=== PATIENT | female | born 1955 | race Caucasian/White ===

== ENCOUNTER → 2017-11-20 10:57 | Outpatient (CLI) | payer OTHER, SELFPAY ==
--- NOTE | 2017-11-20 11:00 | HPBI_ITS ---
MAMMOGRAPHY - BILATERAL SCREENING REASON FOR EXAM: Female, 62 years old. Routine annual screening examination. PERTINENT HISTORY: Non-contributory. Remote left excisional breast biopsy. TECHNIQUE: Digital bilateral breast maine (3D mammographic acquisition) in the CC and MLO projections. 2-D mediolateral oblique (MLO) and craniocaudad (CC) views of both breasts were obtained. CAD: Full Field Digital Mammography with Computer Added Detection was performed. COMPARISON: Comparison is made with prior outside examination dated October 27, 2014. FINDINGS: Breast Composition: The breasts are almost entirely fatty. There are no dominant masses or suspicious calcifications. No other significant abnormalities are identified. There has been no significant change since the prior study. HPBI/SCREENING MAMM (CAD), BILAT IMPRESSION: Stable bilateral screening mammogram. Yearly follow-up mammogram recommended. (A) ASSESSMENT CATEGORY: BIRADS Category 1: Negative. A letter regarding these results will be sent to the patient by the facility within 30 days. Approximately 10% of breast cancers are not detected by mammography. A normal mammogram should not delay biopsy of a clinically suspicious abnormality. [id number] Electronically Signed: Anatoliy Dumont MD at 14:44 EST Tel [phone], Service support ,
== END ==
PROVIDERS: Family Provider Family Medicine; PCP Family Medicine; Visit Provider Family Medicine
DX: Z12.31 Encounter for screening mammogram for malignant neoplasm of breast (principal)
CPT/HCPCS: 77063; 77067

== ENCOUNTER → 2018-02-24 09:31 | Outpatient (CLI) | payer OTHER, SELFPAY ==
[2018-02-24 12:19] LABS: Absolute Lymphocyte Count 1.76 X10^3/ul (0.83-4.51); Absolute Neutrophil Count 2.2 X10^3/uL (2.0-7.7); Basophil# 0.03 X10^3/uL; Basophil% 0.7 % (0-1); Eosinophil# 0.12 X10^3/uL; Eosinophils% 2.7 % (0-5); Hematocrit 37.2 % (37-47); Hemoglobin 12.5 g/dl (12.0-15.0); Lymphocyte # 1.76 X10^3/ul (4.0); Lymphocyte % 39.1 % (19-41); Mean Corp Hgb Conc 33.6 g/gl (32-36); Mean Corpuscular Volume 83.4 fL (81-99); Mean Platelet Vol. 9.6 fl (6.2-12.0); Monocyte# 0.37 X10^3/uL; Monocyte% 8.2 % (0-10); Neutrophil # 2.21 X10^3/uL (2.7-7.7); Neutrophil % 49.1 % (47-70); Platelet Count 230 K/mm3 (150-450); RBC Distribution Width CV 13.6 % (11.6-14.6); RBC Distribution Width SD 40.9 fl (35.1-43.9); Red Blood Count 4.46 M/mm3 (4.2-5.4); White Blood Count 4.5 K/mm3 (4.4-11.0)
[2018-02-24 12:27] LABS: POSITIVE COUNT NO; POSITIVE DIFFERENTIAL NO; POSITIVE MORPHOLOGY NO
[2018-02-24 12:34] LABS: Vitamin D,25 Hydroxy 30.1 ng/mL (29.95-100.01)
[2018-02-24 12:40] LABS: ALB/GLOB Ratio 0.9 RATIO (0.9-2.4); AST(SGOT) 20 U/L (15-37); Alanine Aminotransfer ALT/SGPT 31 U/L (13-56); Albumin, Serum 3.6 g/dL (3.2-5.0); Alkaline Phosphatase 48 U/L (45-117); Anion Gap 6 (5-15); BUN 15 mg/dL (7-18); BUN/Creat Ratio 18.8 RATIO (10-20); Chloride 105 mmol/L (98-107); EST Glomerular Filtration Rate 78 mL/min (>60); Est Glom Filt Rate - Afr Amer 94 mL/min (>60); Free T3 2.3 pg/mL (2.18-3.98); Glucose 85 mg/dL (74-106); Protein, Total 7.6 g/dL (6.4-8.2); Sodium Level 141 mmol/L (136-145); T4 Free Direct 1.07 ng/dL (0.76-1.46); Thyroid Stim Hormone (TSH) 0.94 uIU/mL (0.358-3.74)
== END ==
PROVIDERS: Family Provider Family Medicine; PCP Family Medicine; Visit Provider Family Medicine
DX: E03.9 Hypothyroidism, unspecified (principal); E55.9 Vitamin D deficiency, unspecified; I10 Essential (primary) hypertension
CPT/HCPCS: 36415; 80053; 82306; 84439; 84443; 84481; 85025

== ENCOUNTER → 2018-11-25 13:26 | Outpatient (CLI) | payer OTHER, SELFPAY ==
[2018-11-25 15:53] LABS: Absolute Lymphocyte Count 1.87 X10^3/ul (0.83-4.51); Absolute Neutrophil Count 2.8 X10^3/uL (2.0-7.7); Basophil# 0.03 X10^3/uL; Basophil% 0.6 % (0-1); Eosinophils% 1.9 % (0-5); Hematocrit 39.7 % (37-47); Hemoglobin 13.1 g/dl (12.0-15.0); Lymphocyte # 1.87 X10^3/ul (4.0); Lymphocyte % 35.5 % (19-41); Mean Corpuscular Hgb 27.6 pg (27.0-32.0); Mean Corpuscular Volume 83.8 fL (81-99); Mean Platelet Vol. 9.8 fl (6.2-12.0); Monocyte# 0.45 X10^3/uL; Monocyte% 8.5 % (0-10); Neutrophil # 2.81 X10^3/uL (2.7-7.7); Neutrophil % 53.3 % (47-70); Platelet Count 253 K/mm3 (150-450); RBC Distribution Width CV 13.3 % (11.6-14.6); Red Blood Count 4.74 M/mm3 (4.2-5.4); White Blood Count 5.3 K/mm3 (4.4-11.0)
[2018-11-25 16:13] LABS: POSITIVE COUNT NO; POSITIVE DIFFERENTIAL NO; POSITIVE MORPHOLOGY NO
[2018-11-25 16:29] LABS: ALB/GLOB Ratio 0.9 RATIO (0.9-2.4); AST(SGOT) 17 U/L (15-37); Alanine Aminotransfer ALT/SGPT 32 U/L (13-56); Albumin, Serum 3.6 g/dL (3.2-5.0); Alkaline Phosphatase 54 U/L (45-117); Anion Gap 4 (5-15); BUN 10 mg/dL (7-18); BUN/Creat Ratio 10.5 RATIO (10-20); Calcium,Total 8.1 mg/dL (8.5-10.1); Chloride 104 mmol/L (98-107); Creatinine, Serum 0.96 mg/dL (0.55-1.02); EST Glomerular Filtration Rate 63 mL/min (>60); Est Glom Filt Rate - Afr Amer 76 mL/min (>60); Globulin 4.1 g/dL (2.2-4.2); Glucose 93 mg/dL (74-106); Potassium 3.4 mmol/L (3.5-5.1); Protein, Total 7.7 g/dL (6.4-8.2); Sodium Level 140 mmol/L (136-145); T4 Free Direct 1.01 ng/dL (0.76-1.46)
== END ==
PROVIDERS: Family Provider Family Medicine; PCP Family Medicine; Visit Provider Family Medicine
DX: E03.9 Hypothyroidism, unspecified (principal); R00.2 Palpitations; I10 Essential (primary) hypertension; E55.9 Vitamin D deficiency, unspecified
CPT/HCPCS: 36415; 80053; 82306; 83735; 84439; 84443; 85025

== ENCOUNTER → 2019-03-12 | Outpatient (CLI) | payer OTHER, SELFPAY ==
--- NOTE | 2019-03-12 14:18 | BI_ITS ---
MAMMOGRAPHY - BILATERAL SCREENING REASON FOR EXAM: Female, 63 years old. Routine annual screening examination. PERTINENT HISTORY: Non-contributory. Remote left excisional breast biopsy. TECHNIQUE: Digital bilateral breast maine (3D mammographic acquisition) in the CC and MLO projections. 2-D mediolateral oblique (MLO) and craniocaudad (CC) views of both breasts were obtained. CAD: Full Field Digital Mammography with Computer Added Detection was performed. COMPARISON: Comparison is made with prior study dated November 20, 2017 and August 16, 2016. FINDINGS: Breast Composition: The breasts are almost entirely fatty. There are no dominant masses or suspicious calcifications. No other significant abnormalities are identified. There has been no significant change since the prior study. BI/SCREENING MAMM (CAD), BILAT IMPRESSION: Stable bilateral screening mammogram. Yearly follow-up mammogram recommended. (A) ASSESSMENT CATEGORY: BIRADS Category 1: Negative. A letter regarding these results will be sent to the patient by the facility within 30 days. Approximately 10% of breast cancers are not detected by mammography. A normal mammogram should not delay biopsy of a clinically suspicious abnormality. [id number] Electronically Signed: Anatoliy Dumont, at 15:41 EDT , Service support ,
== END | disposition home or self-care (01) ==
LOC: OPBI 14:13
PROVIDERS: Family Provider Family Medicine; PCP Family Medicine; Referring Provider Family Medicine; Visit Provider Family Medicine
DX: Z12.31 Encounter for screening mammogram for malignant neoplasm of breast (principal)
CPT/HCPCS: 77063; 77067

== ENCOUNTER → 2019-04-16 | Outpatient (CLI) | payer OTHER, SELFPAY ==
[2019-03-26 13:11] VITALS: BMI 56.6
--- NOTE | 2019-04-16 10:00 | STRESSREP ---
Stress Test Report Date: 04/16/2019 Procedure: Pharmacologic stress nuclear imaging study Indications: Chest pain Consent: Per the patient Procedure: The patient underwent pharmacologic (Regadenoson) evaluation with a peak heart rate of 80 beats per minute (50 %predicted maximal heart rate) and a peak blood pressure of 180/84 mmHg. The baseline ECG demonstrated normal sinus rhythm, possible prior septal infarction. EKG during lexiscan infusion revealed no significant change from baseline. EKG post infusion revealed no significant change from baseline [There were no cardiac dysrhythmias pretest, during pharmacologic infusion, or recovery]. [There was no complaint of chest discomfort during pharmacologic infusion or recovery]. The examination was discontinued secondary to completion of protocol. Impression: 1. Lexiscan stress test test is negative for Lexiscan infusion induced EKG changes of ischemia. 2. Lexiscan stress test test is negative for Lexiscan infusion induced chest pain. 3. Results of the nuclear portion of the test is as below Myocardial perfusion imaging study: Technique: The patient was injected with 14.5 millicuries of technetium 99m Cardiolite and subsequently rest SPECT Cardiolite nuclear imaging was obtained in the horizontal long, vertical long, and short axis views. The patient underwent pharmacologic (Regadenoson) evaluation. Please see above for details. The patient was injected with [] millicuries of technetium 99m Cardiolite and subsequently stress SPECT Cardiolite nuclear imaging was obtained in the horizontal long, vertical long, and short axis views. A gated Cardiolite study at peak stress was obtained. Interpretation: Rest and stress SPECT Cardiolite nuclear imaging status post realignment, normalization, and attenuation correction demonstrate mild decrease in radioisotope uptake in the apex on rest and stress images. Gated images reveal significant regional wall motion abnormalities. The reported LVEF is greater than 70 %. These findings are suggestive of apical thinning, a normal variant. There is no evidence of significant ischemia or infarction Impression: 1. There is no evidence of significant ischemia or infarction. 2. Estimated ejection fraction is greater than 70%. This note was generated with [employer] software. It may contain incorrect words, spelling, and punctuation that were not noted in checking the note before signing.
== END | disposition home or self-care (01) ==
LOC: CVS 06:57
PROVIDERS: Family Provider Family Medicine; PCP Family Medicine; Referring Provider Internal Medicine Cardiovascular Disease; Visit Provider Internal Medicine Cardiovascular Disease
DX: R07.9 Chest pain, unspecified (principal)
CPT/HCPCS: 78452; 93017; A9500; A4216; J2785

== ENCOUNTER → 2019-04-22 | Outpatient (CLI) | payer OTHER, SELFPAY ==
--- NOTE | 2019-04-22 | LES_PTH ---
PATIENT: YEIMY NAVAS LOC: [facility] U#:[id number] AGE/SX: 63/F ROOM: RE04/22/[address]: SAMANTHA: [id number] BED: DIS: 04/22/2019 SPEC #: [id number] RECD: 04/22/19 11:57 STATUS: PAKO VIKTOR #: [id number] FABIENNE: 04/22/19 00:[address]: Tushar Peralta DEPT: SURGICAL PATHOLOGY RECD BY: Rah Masters ENTERED: 04/22/19 14:08 SP TYPE: Lesion OTHR DR: MD Dr. Bienvenido Álvarez MD Tissues: A - Skin of upper extremity and shoulder B - Skin of upper extremity and shoulder C - Skin of neck, NOS Procedures: Surgery Specimen Level IV Comments: @ Ordering doctor for SUIV edited from Mary Mercer to @ by JOSE ANTONIO at 04/22/19 1535 @ Submitting doctor edited from Mary Mercer to @ by JOSE ANTONIO at 04/22/19 1535 HEADER OPERATION: Excision bilateral shoulder lesions PRE-OP DIAGNOSIS: Neoplasm TISSUE SUBMITTED: A - Right shoulder lesion, B - Left shoulder lesion, C - Left base of neck lesion MICROSCOPIC DIAGNOSIS A. Right shoulder lesion, biopsy: Benign vascular proliferation, capillary hemangioma. B. Left shoulder lesion, biopsy: Benign vascular proliferation, capillary hemangioma. C. Left base of neck lesion, biopsy: Benign vascular proliferation, capillary hemangioma. JENNI:maddi 04/24/19 MICROSCOPIC DESCRIPTION Slides are reviewed. GROSS DESCRIPTION A - Received in fixative is one container labeled with the patient's name and designated right shoulder. The specimen consists of a polypoid piece of bates-brown skin measuring 1 x 1 x 1 cm. The specimen is inked, bisected and submitted entirely in one cassette. B - Received in fixative is one container labeled with the patient's name and designated left shoulder. The specimen consists of a polypoid piece of bates-brown skin measuring 1 x 0.7 x 0.8 cm. The specimen is inked, bisected and submitted entirely in one cassette. C - Received in fixative is one container labeled with the patient's name and designated left base of neck. The specimen consists of a polypoid piece of bates-pink skin measuring 0.5 x 0.5 x 0.3 cm. The specimen is inked and submitted entirely in one cassette. / SJ:maddi 04/22/19 TC:1 CPT: 48358 x3
[2019-04-22 08:43] VITALS: BMI 56.6
[2019-04-22 12:42] LABS: Cholesterol 180 mg/dL (200); High Density Lipoprotein 49 mg/dL; Triglycerides 134 mg/dL; Very Low Density Lipoprotein 27 mg/dL (5-40)
== END | disposition home or self-care (01) ==
PROVIDERS: Internal Medicine Cardiovascular Disease; Family Provider Family Medicine; PCP Family Medicine; Referring Provider Surgery
DX: I25.10 Atherosclerotic heart disease of native coronary artery without angina pectoris (principal); D18.01 Hemangioma of skin and subcutaneous tissue
CPT/HCPCS: 36415; 80061; 88305

== ENCOUNTER → 2019-09-01 10:10 | Outpatient (CLI) | payer OTHER, SELFPAY ==
[2019-04-22 08:43] VITALS: BMI 56.6
--- NOTE | 2019-09-01 10:28 | RAD_ITS ---
STUDY: X-RAY CHEST REASON FOR EXAM: Female, 63 years old. Persistent cough TECHNIQUE: Frontal and lateral views of the chest. COMPARISON: None. FINDINGS: The lungs are clear and expanded. There is no demonstrated pleural abnormality. Normal size heart. Normal mediastinum and elvira. Normal visualized pulmonary arteries. Normal visualized aortic arch and descending thoracic aorta. There are diffuse degenerative changes of the visualized thoracic spine. There is degenerative osteoarthritis of the bilateral shoulders. There is no demonstrated abnormality of the visualized soft tissue structures of the upper abdomen. RAD/Chest PA and Lateral IMPRESSION: Degenerative changes, as described above. No demonstrated acute cardiopulmonary process. Electronically Signed: Gabi Forde, at 0:24 EST Tel , Service support ,
[2019-09-01 12:23] LABS: Absolute Lymphocyte Count 1.53 X10^3/uL (0.83-4.51); Absolute Neutrophil Count 2.9 X10^3/uL (2.0-7.7); Basophil# 0.02 X10^3/uL; Basophil% 0.4 % (0-1); Eosinophil# 0.12 X10^3/uL; Eosinophils% 2.5 % (0-5); Hematocrit 36.9 % (37-47); Lymphocyte # 1.53 X10^3/ul (4.0); Lymphocyte % 31.7 % (19-41); Mean Corp Hgb Conc 32.5 g/dL (32-36); Mean Corpuscular Hgb 27.6 pg (27.0-32.0); Mean Platelet Vol. 9.5 fl (6.2-12.0); Monocyte# 0.28 X10^3/uL; Monocyte% 5.8 % (0-10); NRBC Flagged by Analyzer 0 % (0-5); Neutrophil # 2.85 X10^3/uL (2.7-7.7); Neutrophil % 59.2 % (47-70); Platelet Count 236 K/mm3 (150-450); RBC Distribution Width CV 13.4 % (11.6-14.6); RBC Distribution Width SD 41.7 fl (35.1-43.9); Red Blood Count 4.34 M/mm3 (4.2-5.4); White Blood Count 4.8 K/mm3 (4.4-11.0)
[2019-09-01 13:00] LABS: Vitamin D,25 Hydroxy 39.8 ng/mL (29.95-100.01)
[2019-09-01 13:22] LABS: AST(SGOT) 17 U/L (15-37); Alanine Aminotransfer ALT/SGPT 27 U/L (13-56); Albumin, Serum 3.6 g/dL (3.2-5.0); Alkaline Phosphatase 59 U/L (45-117); Anion Gap 7 (5-15); BUN 13 mg/dL (7-18); BUN/Creat Ratio 13.1 RATIO (10-20); Calcium,Total 8.3 mg/dL (8.5-10.1); Chloride 105 mmol/L (98-107); Creatinine, Serum 0.99 mg/dL (0.55-1.02); EST Glomerular Filtration Rate 60 mL/min (>60); Est Glom Filt Rate - Afr Amer 73 mL/min (>60); Globulin 3.6 g/dL (2.2-4.2); Glucose 88 mg/dL (74-106); Potassium 3.6 mmol/L (3.5-5.1); Protein, Total 7.2 g/dL (6.4-8.2); Sodium Level 142 mmol/L (136-145); Thyroid Stim Hormone (TSH) 1.12 uIU/mL (0.358-3.74)
== END ==
PROVIDERS: Family Provider Family Medicine; PCP Family Medicine; Referring Provider Family Medicine; Visit Provider Family Medicine
DX: R05 Cough (principal); R73.02 Impaired glucose tolerance (oral); I10 Essential (primary) hypertension; E03.9 Hypothyroidism, unspecified; E55.9 Vitamin D deficiency, unspecified
CPT/HCPCS: 36415; 71046; 80053; 82306; 84443; 85025

== ENCOUNTER → 2020-03-24 08:35 | Outpatient (CLI) | payer OTHER, SELFPAY ==
[2019-04-22 08:43] VITALS: BMI 56.6
[2020-03-24 12:42] LABS: Absolute Lymphocyte Count 1.46 X10^3/uL (0.83-4.51); Absolute Neutrophil Count 2.5 X10^3/uL (2.0-7.7); Basophil# 0.03 X10^3/uL; Basophil% 0.7 % (0-1); Eosinophil# 0.06 X10^3/uL; Eosinophils% 1.4 % (0-5); Hematocrit 38.8 % (37-47); Hemoglobin 12.5 g/dL (12.0-15.0); Lymphocyte # 1.46 X10^3/ul (4.0); Lymphocyte % 33.7 % (19-41); Mean Corp Hgb Conc 32.2 g/dL (32-36); Mean Corpuscular Hgb 27.4 pg (27.0-32.0); Mean Corpuscular Volume 85.1 fL (81-99); Monocyte# 0.32 X10^3/uL; Monocyte% 7.4 % (0-10); NRBC Flagged by Analyzer 0 % (0-5); Neutrophil # 2.45 X10^3/uL (2.7-7.7); Neutrophil % 56.6 % (47-70); Platelet Count 224 K/mm3 (150-450); RBC Distribution Width CV 13.6 % (11.6-14.6); RBC Distribution Width SD 41.4 fl (35.1-43.9); Red Blood Count 4.56 M/mm3 (4.2-5.4); White Blood Count 4.3 K/mm3 (4.4-11.0)
[2020-03-24 12:51] LABS: Vitamin D,25 Hydroxy 54.6 ng/mL
[2020-03-24 12:57] LABS: Hemoglobin A1c 5.3 % (3.8-5.6)
[2020-03-24 12:58] LABS: ALB/GLOB Ratio 0.9 RATIO (0.9-2.4); AST(SGOT) 20 U/L (15-37); Alanine Aminotransfer ALT/SGPT 39 U/L (13-56); Albumin, Serum 3.6 g/dL (3.2-5.0); Alkaline Phosphatase 50 U/L (45-117); Anion Gap 7 (5-15); BUN 17 mg/dL (7-18); BUN/Creat Ratio 19.7 RATIO (10-20); Calcium,Total 8.7 mg/dL (8.5-10.1); Chloride 103 mmol/L (98-107); Cholesterol 148 mg/dL (200); Creatinine, Serum 0.86 mg/dL (0.55-1.02); EST Glomerular Filtration Rate 70 mL/min (>60); Est Glom Filt Rate - Afr Amer 85 mL/min (>60); Globulin 4.1 g/dL (2.2-4.2); Glucose 84 mg/dL (74-106); High Density Lipoprotein 40 mg/dL; Potassium 3.6 mmol/L (3.5-5.1); Protein, Total 7.7 g/dL (6.4-8.2); Sodium Level 139 mmol/L (136-145); Thyroid Stim Hormone (TSH) 0.26 uIU/mL (0.358-3.74); Triglycerides 115 mg/dL; Very Low Density Lipoprotein 23 mg/dL (5-40)
== END ==
PROVIDERS: PCP Family Medicine; Visit Provider Family Medicine
DX: R73.02 Impaired glucose tolerance (oral) (principal); I10 Essential (primary) hypertension; E03.9 Hypothyroidism, unspecified; E55.9 Vitamin D deficiency, unspecified; E78.00 Pure hypercholesterolemia, unspecified
CPT/HCPCS: 36415; 80053; 80061; 82306; 83036; 84443; 85025

== ENCOUNTER → 2020-10-04 16:40 | Outpatient (CLI) | payer OTHER, SELFPAY ==
[2019-04-22 08:43] VITALS: BMI 56.6
--- NOTE | 2020-10-04 16:31 | BI_ITS ---
MAMMOGRAPHY - BILATERAL SCREENING REASON FOR EXAM: Female, 64 years old. Routine annual screening examination. PERTINENT HISTORY: Daughter with breast cancer. TECHNIQUE: Digital bilateral breast madelyn (3D mammographic acquisition) in the CC and MLO projections. 2-D mediolateral oblique (MLO) and craniocaudad (CC) views of both breasts were obtained. CAD: Full Field Digital Mammography with Computer Added Detection was performed. COMPARISON: Comparison is made with prior study dated 03/12/2019 and 11/20/2017. FINDINGS: Breast Composition: The breasts are almost entirely fatty. There are no dominant masses or suspicious calcifications. No other significant abnormalities are identified. There has been no significant change since the prior study. BI/SCREEN MAMM (CAD) W/MADELYN BILAT IMPRESSION: Stable bilateral screening mammogram. Yearly follow-up mammogram recommended. (A) ASSESSMENT CATEGORY: BIRADS Category 1: Negative. A letter regarding these results will be sent to the patient by the facility within 30 days. Approximately 10% of breast cancers are not detected by mammography. A normal mammogram should not delay biopsy of a clinically suspicious abnormality. [id number] Electronically Signed: Anatoliy Dumont, at 8:10 EST , Service support ,
== END ==
PROVIDERS: PCP Family Medicine; Referring Provider Family Medicine; Visit Provider Family Medicine
DX: Z12.31 Encounter for screening mammogram for malignant neoplasm of breast (principal)
CPT/HCPCS: 77063; 77067

== ENCOUNTER → 2020-10-05 09:49 | Outpatient (CLI) | payer OTHER, SELFPAY ==
[2019-04-22 08:43] VITALS: BMI 56.6
[2020-10-05 12:45] LABS: Absolute Neutrophil Count 3.3 X10^3/uL (2.0-7.7); Basophil# 0.05 X10^3/uL; Basophil% 0.9 % (0-1); Eosinophils% 1.8 % (0-5); Hematocrit 39.8 % (37-47); Hemoglobin 13.1 g/dL (12.0-15.0); Lymphocyte % 31.1 % (19-41); Mean Corp Hgb Conc 32.9 g/dL (32-36); Mean Corpuscular Hgb 27.7 pg (27.0-32.0); Mean Corpuscular Volume 84.1 fL (81-99); Mean Platelet Vol. 9.7 fl (6.2-12.0); Monocyte# 0.33 X10^3/uL; NRBC Flagged by Analyzer 0 % (0-5); Neutrophil # 3.27 X10^3/uL (2.7-7.7); Platelet Count 253 K/mm3 (150-450); RBC Distribution Width CV 12.7 % (11.6-14.6); RBC Distribution Width SD 38.5 fl (35.1-43.9); Red Blood Count 4.73 M/mm3 (4.2-5.4); White Blood Count 5.5 K/mm3 (4.4-11.0)
[2020-10-05 13:16] LABS: AST(SGOT) 9 U/L (15-37); Alanine Aminotransfer ALT/SGPT 20 U/L (13-56); Albumin, Serum 3.7 g/dL (3.2-5.0); Alkaline Phosphatase 57 U/L (45-117); Anion Gap 3 (5-15); BUN 18 mg/dL (7-18); BUN/Creat Ratio 16.5 RATIO (10-20); Calcium,Total 8.5 mg/dL (8.5-10.1); Chloride 105 mmol/L (98-107); Cholesterol 196 mg/dL (200); Creatinine, Serum 1.09 mg/dL (0.55-1.02); EST Glomerular Filtration Rate 54 mL/min (>60); Est Glom Filt Rate - Afr Amer 65 mL/min (>60); Globulin 3.8 g/dL (2.2-4.2); Glucose 84 mg/dL (74-106); High Density Lipoprotein 52 mg/dL; Potassium 4.1 mmol/L (3.5-5.1); Protein, Total 7.5 g/dL (6.4-8.2); Sodium Level 140 mmol/L (136-145); Thyroid Stim Hormone (TSH) 2.65 uIU/mL (0.358-3.74); Triglycerides 95 mg/dL; Very Low Density Lipoprotein 19 mg/dL (5-40)
== END ==
LOC: BFHLAB 09:50
PROVIDERS: PCP Family Medicine; Visit Provider Family Medicine
DX: I10 Essential (primary) hypertension (principal); E03.9 Hypothyroidism, unspecified; E55.9 Vitamin D deficiency, unspecified; R60.9 Edema, unspecified
CPT/HCPCS: 36415; 80053; 80061; 82306; 84439; 84443; 85025

== ENCOUNTER 2020-12-29 15:28 | Outpatient (RCR) | payer OTHER, SELFPAY ==
[2019-04-22 08:43] VITALS: BMI 56.6
[2020-12-29] MEDS: COVID-19 VACC, MRNA(PFIZER)/PF 30 MCG/0.3 ML SYRINGE IM (17:19)
[2021-01-19] MEDS: COVID-19 VACC, MRNA(PFIZER)/PF 30 MCG/0.3 ML SYRINGE IM (17:05)
== END 2021-03-28 23:59 ==
LOC: IMMUN 15:28
PROVIDERS: PCP Family Medicine; Visit Provider Family Medicine
DX: Z23 Encounter for immunization (principal)
CPT/HCPCS: 0001A; 0002A; 91300

== ENCOUNTER → 2021-07-15 | Outpatient (CLI) | payer OTHER, SELFPAY | END | disposition home or self-care (01) | LOC: LABSPEC 10:07 | PROVIDERS: PCP Family Medicine; Referring Provider Family Medicine; Visit Provider Family Medicine | DX: U07.1 COVID-19 (principal) | CPT/HCPCS: 87635; U0005; U0003 ==

== ENCOUNTER → 2021-08-23 10:01 | Outpatient (CLI) | payer OTHER, SELFPAY ==
[2019-04-22 08:43] VITALS: BMI 56.6
--- NOTE | 2021-08-23 10:03 | RAD_ITS ---
STUDY: X-RAY CHEST REASON FOR EXAM: Female, 65 years old. CHEST PAIN TECHNIQUE: PA and lateral COMPARISON: 09/01/2019. FINDINGS: The lungs are clear and expanded. There is no demonstrated pleural abnormality. Heart is mildly enlarged. Normal mediastinum and elvira. Normal visualized pulmonary arteries. Normal visualized aortic arch and descending thoracic aorta. Dorsal spine demonstrates degenerative change. Normal visualized ribs, clavicles, and shoulders. There is no demonstrated abnormality of the visualized soft tissue structures of the upper abdomen. No significant change since prior exam. RAD/Chest PA and Lateral IMPRESSION: No acute cardiopulmonary pathology Electronically Signed: Francisco Nuñez MD at 16:49 EDT , Service support ,
== END ==
PROVIDERS: PCP Family Medicine; Referring Provider Family Medicine; Visit Provider Family Medicine
DX: R07.89 Other chest pain (principal)
CPT/HCPCS: 71046

== ENCOUNTER → 2021-10-10 12:54 | Outpatient (CLI) | payer OTHER, SELFPAY ==
--- NOTE | 2021-10-10 12:57 | BI_ITS ---
MAMMOGRAPHY - BILATERAL SCREENING REASON FOR EXAM: Female, 65 years old. Routine annual screening examination. PERTINENT HISTORY: Daughter with breast cancer. Remote left excisional breast biopsy. TECHNIQUE: Digital bilateral breast madelyn (3D mammographic acquisition) in the CC and MLO projections. 2-D mediolateral oblique (MLO) and craniocaudad (CC) views of both breasts were obtained. CAD: Full Field Digital Mammography with Computer Added Detection was performed. COMPARISON: Comparison is made with prior study dated 10/04/2020 and 03/12/2019. FINDINGS: Breast Composition: The breasts are almost entirely fatty. There are no dominant masses or suspicious calcifications. Stable small benign-appearing bilateral axillary. No other significant abnormalities are identified. There has been no significant change since the prior study. BI/SCRN MAMM (CAD)W/MADELYN BILAT IMPRESSION: Stable bilateral screening mammogram. Yearly follow-up mammogram recommended. (A) ASSESSMENT CATEGORY: BIRADS Category 2: Benign. A letter regarding these results will be sent to the patient by the facility within 30 days. Approximately 10% of breast cancers are not detected by mammography. A normal mammogram should not delay biopsy of a clinically suspicious abnormality. [id number] Electronically Signed: Anatoliy Dumont MD at 14:27 EST , Service support ,
== END ==
PROVIDERS: PCP Family Medicine; Referring Provider Family Medicine; Visit Provider Family Medicine
DX: Z12.31 Encounter for screening mammogram for malignant neoplasm of breast (principal)
CPT/HCPCS: 77063; 77067

== ENCOUNTER 2021-11-08 17:44 | Emergency (ER) | payer MEDICARE, OTHER, SELFPAY ==
[2021-11-08 17:45] VITALS: BP 151/112; PULSE 66; RESP 16; TEMP 36.3; O2SAT 99; BMI 56.5
[2021-11-08 17:51] LABS: Bedside Glucose 110 mg/dL (70-110)
--- NOTE | 2021-11-08 17:51 | ED.RN ---
DR. CONNELL AND CHARGE NURSE ROSA INFORMED OF PT SX ON ARRIVAL. PER DR. CONNELL, NO STROKE TEAM. PT MAY BE HAVING A REACTION TO NOVOCAINE INJECTIONS. PT REPORTS IMPROVING SX, BUT SX HAVE NOT RESOLVED. DR. CONNELL AWARE.
[2021-11-08 19:11] VITALS: BP 181/68
--- NOTE | 2021-11-08 19:43 | EDS_ITS ---
HPI History of Present Illness Chief Complaint: Numb/Ting Detail of Chief Complaint: Left facial numbness and tingling after having local anesthetic for dental Informant: patient Onset/Context/Timing Onset: Today and Hours Context: Gradual Onset Timing: Continuous Quality and Location: Positive for Left Facial Droop and Right Face Paresthesia; Negative for Right Arm Parasthesia, Left Arm Parasthesia, Right Leg Parasthesia, Left Leg Parasthesia, Right Arm Weakness, Left Arm Weakness, Right Leg Weakness, Left Leg Weakness and Difficulty with Ambulation Current Severity: Gone Maximum Severity: Mild Narrative Narrative: 65-year-old female had dental work done today with local anesthetic to her left lower jaw. She had a filling placed in the left lower molar. She said after the procedure she has some facial tingling and may be a left facial droop. It is now completely resolved. She had no trouble using her arms or legs. No new numbness or weakness. No visual change. She has never had any history of a TIA or stroke. Prior similar symptoms: No Recent Illness/Hospitalization: No [facility] Medical History (Updated 11/08/21 @ 19:[address] Sandip Mcgee MD) Agatston CAC score, >400 Asthmatic bronchitis Chest discomfort Depression Edema Family history of ischemic heart disease GERD (gastroesophageal reflux disease) History of colon polyps History of pulmonary embolus (PE) (12/01/16) HTN (hypertension) Hyperlipidemia Hypothyroidism Morbid obesity Palpitations Pulmonary embolus (~2017) Skin lesion Sleep apnea Home Medications aspirin 81 mg PO DAILY 12/01/16 [History Last Taken 11/30/16] citalopram 20 mg PO DAILY 12/01/16 [History Last Taken 11/30/16] furosemide 20 mg PO DAILY 12/01/16 [History Last Taken 11/30/16] levothyroxine 175 mcg PO DAILY 12/01/16 [History Last Taken 12/01/16] losartan-hydrochlorothiazide 1 ea PO DAILY 12/01/16 [History Last Taken 11/30/16] cholecalciferol (vitamin D3) 1,250 mcg (50,000 unit) capsule 50,000 unit PO QWEEK cap 04/15/19 [History Last Taken Unknown] Allergy/AdvReac Type Severity Reaction Status Date / Time erythromycin base Allergy Mild rash Verified 11/08/21 17:45 sertraline [From Zoloft] AdvReac Mild mental Verified 11/08/21 17:45 status change atorvastatin [From Lipitor] AdvReac Other Verified 11/08/21 19:13 lisinopril AdvReac Other Verified 11/08/21 19:13 Family History Father Myocardial infarction CAD (coronary artery disease) Mother Cancer ovarian Hypertension Hyperlipidemia Surgical History History of cholecystectomy History of colonoscopy (~2013) history of completion thyroidectomy History of hysterectomy History of partial thyroidectomy Social History (Updated 04/22/19 @ 16:[address] Tushar Peralta MD) Smoking Status: Never smoker ROS ROS ED ROS Narrative No recent illness. Review of Systems ROS Unobtainable: Denies due to encephalopathy Constitutional Constitutional ED: Denies chills, fever(s) or subjective Eyes Eyes: Denies change in vision ENT ENT ED: Denies ear pain or rhinorrhea Cardiovascular Cardiovascular: Denies chest pain Respiratory/Chest Respiratory/Chest: Denies cough, dyspnea or sputum Gastrointestinal Gastrointestinal: Denies abdominal pain, diarrhea, nausea or vomiting Genitourinary Genitourinary ED: Denies dysuria Musculoskeletal Musculoskeletal: Denies myalgias Integumentary Denies rash Neurologic Neurologic: Denies headache(s) Psychiatric Psychiatric: Denies depression Endocrine Endocrinology: Denies polyuria Hematologic/Lymphatic Hematologic/Lymphatic: Denies easy bruising Allergic/Immunologic Allergic/Immunologic ED: Denies urticaria EXAM Physical Exam Narrative Exam Narrative: 65-year-old female normal exam. Normal neurologic exam. Initially blood pressure was 151/112 is now 181/68. Pulse ox 99% on room air no hypoxia. She is afebrile. HEENT exam normal. Currently no facial droop. Able to open and close her eyes only difficult. Able to wrinkle her forehead. Normal speech. Neck nontender. Lungs are clear. Heart regular rhythm no murmur. Abdomen soft nontender moving all 4 extremities. 5-5 balance weigher strength. Dorsi plantarflexion intact. Fingertip to nose within normal limits. No drift. Back nontender. Neurologic exam normal. Awake. Alert. Normal speech. No facial droop. Extraocular motions intact. Tongue midline. Arms and legs motor and sensory normal. NIH of 0. Const Vital Signs: 11/08/21 17:45 11/08/21 19:11 Temperature 97.3 F L Temperature Source Temporal Pulse Rate 66 Respiratory Rate 16 Blood Pressure 151/112 H 181/68 H Blood Pressure Mean 125 105 Pulse Ox 99 Oxygen Delivery Method Room Air Positive well nourished, well developed and obese; Negative for cachectic, contractures or unkempt General Appearance ED: well developed and NAD; Negative for unkempt, cachectic or contractures Nutritional Appearance: obese; Negative for cachectic HEENT Reports moist mucous membranes atraumatic; Negative for trauma Eyes PERRL and EOMs intact bilaterally General Eye ED: Negative for pale conjunctiva or scleral icterus Neck supple and no JVD General: Negative for tenderness Chest Wall inspection of chest normal and palpation of chest normal Resp normal respiratory effort and clear to auscultation bilaterally Auscultation: Negative for rales, rhonchi or wheezes Cardio no murmurs Rate: regular rate Rhythm: regular rhythm Heart Sounds: S1 normal and S2 normal GI normal to inspection, nondistended, normoactive bowel sounds, soft to palpation, non-tender, non-distended and no masses Inspection: Negative for abdominal distention Auscultation: normoactive bowel sounds Palpation: Negative for tender, guarding or rebound tenderness present Back/Spine no CVA tenderness General Back: Negative for CVA tenderness Cervical Spine: Negative for cervical spine tenderness Thoracic Spine / Upper Back: Negative for thoracic spinal tenderness Lumbar Spine / Lower Back: Negative for lumbar spinal tenderness Extremity normal to inspection General Extremety ED: Negative for deformity, edema or tenderness General Extremity: Negative for deformity or edema Neuro oriented x3, CN's II-XII intact bilaterally and no sensory deficits noted Neuro Narrative: NIH score 0. Sensorium / Orientation: alert, oriented to person, oriented to place and oriented to time; Negative for orientation impaired, confused, lethargic or stuporous Speech: speech normal Motor Exam: strength 5/5 throughout; Negative for general weakness or strength abnormal Psych mental status grossly normal Appearance: Negative for unkempt Attitude: No agitated Mood & Affect: Negative for depressed, anxious or tearful Skin no wounds General Skin Exam: Negative for jaundice Lesions: no lesions Rashes: no rashes and No rashes noted Trauma: Negative for abrasion, laceration or puncture STROKE Vital Signs/Narrative: Vital Signs Temp Pulse Resp BP Pulse Ox 11/08/21 19:11 181/68 H 11/08/21 17:45 97.3 F L 66 16 151/112 H 99 MDM MDM MDM Narrative Medical decision making narrative: 65-year-old female had left facial numbness from local anesthetic today after dental work. She has no stroke symptoms. Her glucose is 110. She and I discussed the CAT scan with I offered she deferred at this time. She is comfortable being discharged home. She has a completely normal neurologic exam. Lab Data Attestation: I reviewed the patient's lab results. Lab results narrative: 10. She knows to watch for any neurological symptoms. Labs: Laboratory Results - last 24 hr 11/08/21 17:47 POC Glucose 110 Discharge Plan Triage Chief Complaint: Numb/Ting ED Provider: Sandip Mcgee Dx/Rx/DC Orders Clinical Impression: Facial paresthesia, HTN (hypertension) Instructions: ED Paraesthesias Prescriptions: No Action levothyroxine 175 MCG tablet 175 mcg PO DAILY RF: 0 citalopram 20 MG tablet 20 mg PO DAILY RF: 0 aspirin 81 MG tablet,chewable 81 mg PO DAILY RF: 0 furosemide 20 MG tablet 20 mg PO DAILY RF: 0 losartan-hydrochlorothiazide 1 EACH tablet 1 ea PO DAILY RF: 0 cholecalciferol (vitamin D3) 50,000 unit capsule 50,000 unit PO QWEEK RF: 0 Primary Care Provider: Bienvenido Traore Referrals: Bienvenido Traore MD [Primary Care Provider] - As Needed Activity Restrictions/Additional Instructions: All of your symptoms today seem to be secondary to the dental anesthesia. This should completely resolve. If you develop any weakness to your arms or legs or numbness to your arms or legs return to the emergency department. Disposition Disposition: Home, Self Care
[2021-11-08 20:15] VITALS: RESP 16
== END 2021-11-08 20:15 | disposition home or self-care (01) ==
LOC: ED 20:06
PROVIDERS: Emergency Provider Emergency Medicine; PCP Family Medicine; Visit Provider Emergency Medicine
DX: R20.2 Paresthesia of skin (principal); E66.01 Morbid (severe) obesity due to excess calories; Z68.43 Body mass index [BMI] 50.0-59.9, adult; I10 Essential (primary) hypertension; E78.5 Hyperlipidemia, unspecified; E03.9 Hypothyroidism, unspecified; Z79.82 Long term (current) use of aspirin; Z79.899 Other long term (current) drug therapy; Z86.711 Personal history of pulmonary embolism
CPT/HCPCS: 82962; 99282

== ENCOUNTER 2021-12-16 22:16 | Emergency (ER) | payer MEDICARE, OTHER, SELFPAY ==
[2021-12-16 22:16] VITALS: BP 232/89; PULSE 72; RESP 16; TEMP 36.4; O2SAT 98; BMI 59.1
[2021-12-16 22:20] VITALS: PULSE 80; RESP 16; O2SAT 95
[2021-12-16 22:23] VITALS: BMI 60.1
[2021-12-16 22:25] VITALS: BP 215/88
--- NOTE | 2021-12-16 22:27 | EKG12_ITS ---
Test Reason : DYSRHYTHMIA Blood Pressure : / mmHG Vent. Rate : 077 BPM Atrial Rate : 077 BPM P-R Int : 160 ms QRS Dur : 104 ms QT Int : 414 ms P-R-T Axes : 056 -37 068 degrees QTc Int : 468 ms Normal sinus rhythm Left axis deviation Nonspecific ST abnormality Abnormal ECG Confirmed by PIOTR LEMONS, LEIGH ([id number]), communications editor ORLIN RODRIGUEZ ([id number]) on 12/21/2021 1:12:32 PM Referred By: FRIDA Confirmed By:LEIGH SALDAÑA MD
[2021-12-16 22:31] LABS: Bedside Glucose 109 mg/dL (70-110)
--- NOTE | 2021-12-16 22:52 | CT_ITS ---
STUDY: CT BRAIN WITHOUT CONTRAST REASON FOR EXAM: Female, 66 years old. paresthesia RADIATION DOSAGE (If Supplied By Facility): CTDIvol = ( 44.99 ) mGy, DLP = ( 779.24 ) mGycm TECHNIQUE: Transaxial CT imaging of the brain was performed without administration of intravenous contrast material. Individualized dose optimization techniques were used for this CT. COMPARISON: No relevant priors. FINDINGS: Normal soft tissue structures. Normal calvarium. Normal size ventricles and extra-axial spaces for the patient''s age. Normal white matter tracts of the cerebral hemispheres. Normal basal ganglia and thalami. Normal brainstem. Normal cerebellum. There is no intracranial hemorrhage. There are no findings of an acute ischemic infarction. Normal visualized paranasal sinuses. CT/Brain/Head without Contrast IMPRESSION: No acute intracranial hemorrhage or mass effect. Electronically Signed: Alvin Kuo MD ([place]) at 23:21 EST ,
--- NOTE | 2021-12-16 22:56 | EDS_ITS ---
HPI History of Present Illness Chief Complaint: Neuro S/Sx Narrative Narrative: 66-year-old female presenting with intermittent tingling in the left side of her face and in her left arm. This started about 830. She states she does not have a headache. She denies chest pain. She states that from time to time she gets short of breath, but this is not a new issue. She states that she just does not exercise or get up as much as she should. She has not had a fever or chills. She denies nausea or vomiting. She states that she just feels like she is off. She does state that her blood pressure has been elevated. She cannot remember her blood pressure medication currently but will look it up. [facility] Medical History Agatston CAC score, >400 Asthmatic bronchitis Chest discomfort Depression Edema Family history of ischemic heart disease GERD (gastroesophageal reflux disease) History of colon polyps History of pulmonary embolus (PE) (12/01/16) HTN (hypertension) Hyperlipidemia Hypothyroidism Morbid obesity Palpitations Pulmonary embolus (~2016) Skin lesion Sleep apnea Home Medications aspirin 81 mg PO DAILY 12/01/16 [History Last Taken 11/30/16] citalopram 20 mg PO DAILY 12/01/16 [History Last Taken 11/30/16] furosemide 20 mg PO DAILY 12/01/16 [History Last Taken 11/30/16] levothyroxine 175 mcg PO DAILY 12/01/16 [History Last Taken 12/01/16] losartan-hydrochlorothiazide 1 ea PO DAILY 12/01/16 [History Last Taken 11/30/16] cholecalciferol (vitamin D3) 1,250 mcg (50,000 unit) capsule 50,000 unit PO QWEEK cap 04/15/19 [History Last Taken Unknown] losartan-hydrochlorothiazide 1 tab PO DAILY #30 tab 12/17/21 [Rx Last Taken Unknown] Allergy/AdvReac Type Severity Reaction Status Date / Time erythromycin base Allergy Mild rash Verified 12/16/21 22:20 sertraline [From Zoloft] AdvReac Mild mental Verified 12/16/21 22:20 status change atorvastatin [From Lipitor] AdvReac Other Verified 12/16/21 22:20 lisinopril AdvReac Other Verified 12/16/21 22:20 Family History Father Myocardial infarction CAD (coronary artery disease) Mother Cancer ovarian Hypertension Hyperlipidemia Surgical History History of cholecystectomy History of colonoscopy (~2013) history of completion thyroidectomy History of hysterectomy History of partial thyroidectomy Social History Smoking Status: Never smoker ROS ROS ED Constitutional Constitutional ED: Denies chills or fever(s) Eyes Eyes: Denies blurry vision or change in vision ENT ENT ED: Denies rhinorrhea or sore throat Cardiovascular Cardiovascular: Denies chest pain or palpitations Respiratory/Chest Respiratory/Chest: Denies cough or dyspnea Gastrointestinal Gastrointestinal: Denies abdominal pain, nausea or vomiting Genitourinary Genitourinary ED: Denies dysuria or hematuria Musculoskeletal Musculoskeletal: Denies arthralgias, back pain, myalgias or neck pain Integumentary Denies rash Neurologic Neurologic: Reports paresthesias; Denies headache(s) Psychiatric Psychiatric: Denies anxiety or depression EXAM Physical Exam Const Vital Signs: 12/16/21 22:16 12/16/21 22:20 12/16/21 22:25 Temperature 97.6 F L Temperature Source Temporal Pulse Rate 72 80 Respiratory Rate 16 16 Blood Pressure 232/89 H 215/88 H Blood Pressure Mean 136 130 Pulse Ox 98 95 Oxygen Delivery Method Room Air Room Air 12/16/21 23:51 12/17/21 00:00 12/17/21 00:53 Temperature Temperature Source Pulse Rate 67 75 70 Respiratory Rate 17 18 20 H Blood Pressure 189/61 H 188/63 H 192/63 H Blood Pressure Mean 103 104 106 Pulse Ox 98 100 98 Oxygen Delivery Method Room Air Room Air Room Air Positive well nourished General Appearance ED: NAD HEENT Reports moist mucous membranes atraumatic Eyes PERRL and EOMs intact bilaterally Resp normal respiratory effort and clear to auscultation bilaterally Cardio Rate: regular rate Rhythm: regular rhythm GI normal to inspection, nondistended, normoactive bowel sounds Extremity normal to inspection Neuro oriented x3, CN's II-XII intact bilaterally and no sensory deficits noted Neuro Narrative: Head stroke scale score of 0 Sensorium / Orientation: alert Speech: speech normal Motor Exam: strength 5/5 throughout Psych mental status grossly normal Skin No no wounds General Skin Exam: Negative for jaundice STROKE Vital Signs/Narrative: Vital Signs Pulse Resp BP Pulse Ox 12/17/21 00:53 70 20 H 192/63 H 98 MDM MDM MDM Narrative Medical decision making narrative: [age]-year-old female presenting with intermittent numbness and tingling left side of her face and her left arm. She states is currently not present. This started about 830 tonight. Patient denies having a sensation of the floor. She has no history of stroke. She currently does not have any specific complaints except for I feel off. Blood pressure is elevated here today. Otherwise her vital signs are stable. EKG on my interpretation shows a sinus rhythm with a ventricular rate of 77 bpm. Chest x-ray on my interpretation shows no acute cardiopulmonary process the radiologist agree. I did obtain a CT of the brain which is negative. Patient was given hydralazine 5 mg IV and her blood pressure did improve to 192/63. Patient feels improved. Her NIH stroke scale score was 0. I suspect her symptoms are for high blood pressure. Her CBC is normal. CMP shows a slight elevated creatinine of 1.10 which is at her baseline. High-sensitivity troponin is 14. Patient takes losartan 50 mg with 12.5 HCTZ. I will increase her dose to 100 mg with a 12.5 HCTZ. She is to follow-up with her primary care provider and to keep a blood pressure diary. She is amenable to this plan and discharged home in stable condition. Impression: 1. Hypertension Lab Data Attestation: I reviewed the patient's lab results. Labs: Laboratory Results - last 24 hr 12/16/21 12/16/21 12/16/21 22:24 22:47 22:47 WBC 7.6 RBC 4.56 Hgb 13.0 Hct 37.8 MCV 82.9 MCH 28.5 MCHC 34.4 RDW Std Deviation 39.3 RDW Coeff of Katie 13.1 Plt Count 232 MPV 9.3 Immature Gran % (Auto) 0.500 Neut % (Auto) 59.8 Lymph % (Auto) 30.1 [place] % (Auto) 7.2 Eos % (Auto) 1.9 Baso % (Auto) 0.5 Absolute Neuts (auto) 4.5 Absolute Lymphs (auto) 2.27 Nucleated RBC % 0 Sodium 139 Potassium 3.9 Chloride 104 Carbon Dioxide 30.0 Anion Gap 5 BUN 18 Creatinine 1.10 H Estim Creat Clear Calc 45.88 Est GFR (MDRD) Af Amer 64 Est GFR (MDRD) Non-Af 53 L BUN/Creatinine Ratio 16.4 Glucose 134 H Calcium 8.6 Total Bilirubin 0.50 AST 17 ALT 30 Alkaline Phosphatase 57 Troponin I High Sens 14 Total Protein 7.4 Albumin 3.6 Globulin 3.8 Albumin/Globulin Ratio 0.9 POC Glucose 109 Radiography Diagnostic Testing: Clinical Impression(s) from Imaging Studies Brain CT 12/16/21 22:52 IMPRESSION: No acute intracranial hemorrhage or mass effect. Electronically Signed: Alvin Kuo MD ([place]) at 23:21 EST , Chest X-Ray 12/16/21 23:10 IMPRESSION: Nonacute portable x-ray examination of the chest. Electronically Signed: Alvin Kuo MD ([place]) at 23:23 EST , Discharge Plan Triage Chief Complaint: Neuro S/Sx ED Provider: Johnny Olson Dx/Rx/DC Orders Instructions: ED Hypertension, Established Prescriptions: New losartan-hydrochlorothiazide 100-12.5 mg tablet 1 tab PO DAILY Qty: 30 RF: 0 No Action levothyroxine 175 MCG tablet 175 mcg PO DAILY RF: 0 citalopram 20 MG tablet 20 mg PO DAILY RF: 0 aspirin 81 MG tablet,chewable 81 mg PO DAILY RF: 0 furosemide 20 MG tablet 20 mg PO DAILY RF: 0 losartan-hydrochlorothiazide 1 EACH tablet 1 ea PO DAILY RF: 0 cholecalciferol (vitamin D3) 50,000 unit capsule 50,000 unit PO QWEEK RF: 0 Primary Care Provider: Bienvenido Traore Referrals: Bienvenido Traore MD [Primary Care Provider] - Disposition Disposition: Home, Self Care Discharge Date/Time: 12/17/21 01:00
--- NOTE | 2021-12-16 23:10 | RAD_ITS ---
STUDY: X-RAY CHEST REASON FOR EXAM: Female, 66 years old. NAUSEA, INTERMITTENT LEFT SIDED FACIAL NUMBNESS SINCE 2029. DENIES CURRENT WEAKNESS OR NUMBNESS TECHNIQUE: AP COMPARISON: 08/23/2021 FINDINGS: EKG leads project over the chest. The lungs are clear and expanded. There is no demonstrated pleural abnormality. Normal size heart. Normal mediastinum and elvira. Normal visualized pulmonary arteries. Normal visualized aortic arch and descending thoracic aorta. Normal visualized thoracic spine. Normal visualized ribs, clavicles, and shoulders. There is no demonstrated abnormality of the visualized soft tissue structures of the upper abdomen. RAD/Chest 1 View (Portable) IMPRESSION: Nonacute portable x-ray examination of the chest. Electronically Signed: Alvin Kuo MD ([place]) at 23:23 EST ,
[2021-12-16 23:11] LABS: Absolute Lymphocyte Count 2.27 X10^3/uL (0.83-4.51); Absolute Neutrophil Count 4.5 X10^3/uL (2.0-7.7); Basophil# 0.04 X10^3/uL; Basophil% 0.5 % (0-1); Eosinophil# 0.14 X10^3/uL; Eosinophils% 1.9 % (0-5); Hematocrit 37.8 % (37-47); Lymphocyte # 2.27 X10^3/ul (0.83-4.51); Lymphocyte % 30.1 % (19-41); Mean Corp Hgb Conc 34.4 g/dL (32-36); Mean Corpuscular Hgb 28.5 pg (27.0-32.0); Mean Corpuscular Volume 82.9 fL (81-99); Mean Platelet Vol. 9.3 fl (6.2-12.0); Monocyte# 0.54 X10^3/uL; Monocyte% 7.2 % (0-10); NRBC Flagged by Analyzer 0 % (0-5); Neutrophil # 4.52 X10^3/uL (2.7-7.7); Neutrophil % 59.8 % (47-70); Platelet Count 232 K/mm3 (150-450); RBC Distribution Width CV 13.1 % (11.6-14.6); RBC Distribution Width SD 39.3 fl (35.1-43.9); Red Blood Count 4.56 M/mm3 (4.2-5.4); White Blood Count 7.6 K/mm3 (4.4-11.0)
[2021-12-16] MEDS: hydrALAZINE 20 MG/ML Vial 5 MG IV (23:16)
[2021-12-16 23:34] LABS: ALB/GLOB Ratio 0.9 RATIO (0.9-2.4); AST(SGOT) 17 U/L (15-37); Alanine Aminotransfer ALT/SGPT 30 U/L (13-56); Albumin, Serum 3.6 g/dL (3.2-5.0); Alkaline Phosphatase 57 U/L (45-117); Anion Gap 5 (5-15); BUN 18 mg/dL (7-18); BUN/Creat Ratio 16.4 RATIO (10-20); Calcium,Total 8.6 mg/dL (8.5-10.1); Chloride 104 mmol/L (98-107); EST Glomerular Filtration Rate 53 mL/min (>60); Est Glom Filt Rate - Afr Amer 64 mL/min (>60); Estimated Creatinine Clearance 45.88 ml/min; Globulin 3.8 g/dL (2.2-4.2); Glucose 134 mg/dL (74-106); Potassium 3.9 mmol/L (3.5-5.1); Protein, Total 7.4 g/dL (6.4-8.2); Sodium Level 139 mmol/L (136-145); Troponin-I HS 14 pg/mL (3.0-54.0)
[2021-12-16 23:51] VITALS: BP 189/61; PULSE 67; RESP 17; O2SAT 98
[2021-12-17] VITALS: BP 188/63; PULSE 75; RESP 18; O2SAT 100
[2021-12-17] MEDS: Losartan Potassium 50 MG Tablet PO (00:51)
[2021-12-17 00:53] VITALS: BP 192/63; PULSE 70; RESP 20; O2SAT 98
== END 2021-12-17 01:00 | disposition home or self-care (01) ==
PROVIDERS: Emergency Provider Student in an Organized Health Care Education/Training Program; PCP Family Medicine; Visit Provider Student in an Organized Health Care Education/Training Program
DX: I10 Essential (primary) hypertension (principal); E66.01 Morbid (severe) obesity due to excess calories; E78.5 Hyperlipidemia, unspecified; E89.0 Postprocedural hypothyroidism; K21.9 Gastro-esophageal reflux disease without esophagitis; G47.30 Sleep apnea, unspecified; Z79.82 Long term (current) use of aspirin; Z79.890 Hormone replacement therapy; Z79.899 Other long term (current) drug therapy; Z86.711 Personal history of pulmonary embolism
CPT/HCPCS: 70450; 71045; 80053; 82962; 84484; 85025; 93005; 96374; 99285; A4216

== ENCOUNTER → 2022-02-27 | Outpatient (CLI) | payer MEDICARE, OTHER, SELFPAY ==
--- NOTE | 2022-02-27 09:00 | RAD_ITS ---
EXAMINATION: UPPER GI SERIES air-contrast INDICATION: Female, 66 years dysphagia mid esophagus. FLUOROSCOPY TIME (if supplied): (0:54) minutes/seconds. 25 images were submitted. TECHNIQUE: Radiographic and fluoroscopic images of the distal esophagus, stomach, and proximal small intestine were obtained following the oral ingestion of barium. COMPARISON: None. FINDINGS: There is no evidence for organomegaly, abnormal calcifications, or abnormal bowel gas pattern. The psoas margins and flank stripes are normal. The visualized osseous structures are normal. The mucosa of the esophagus, stomach and duodenum is normal in appearance without evidence for stricture, ulceration, mass or diverticulum. There is no evidence for hiatal hernia or gastroesophageal reflux. IMPRESSION: 1. Normal upper gastrointestinal study. Electronically Signed: Anatoliy Dumont MD at 14:28 EDT , STUDY: X-RAY - ESOPHAGUS (BARIUM SWALLOW) WITH FLUOROSCOPY REASON FOR EXAM: Female, 66 years old. DYSPHAGIA/ FOOD STICKING TECHNIQUE: 26 view(s) of the esophagus were obtained following swallowing of barium. FLUOROSCOPY TIME (if supplied): (54 seconds) minutes/seconds COMPARISON: None. FINDINGS: There is no demonstrated esophageal foreign body. There is no demonstrated stricture or mucosal abnormality. Normal gastroesophageal junction, without a demonstrated hiatal hernia. The patient ingested a 12 mm tablet of barium without any difficulty. There is atherosclerotic tortuosity of the aortic arch and descending thoracic aorta. Normal visualized pulmonary parenchyma. There are diffuse degenerative changes of the visualized thoracic spine. RAD/Upper GI w/BA Swallow IMPRESSION: Normal plain film x-ray examination (barium swallow) of the esophagus. Electronically Signed: Anatoliy Dumont MD at 14:29 EDT ,
== END | disposition home or self-care (01) ==
LOC: RAD 08:53
PROVIDERS: PCP Family Medicine; Visit Provider Family Medicine
DX: R13.10 Dysphagia, unspecified (principal)
CPT/HCPCS: 74246

== ENCOUNTER → 2022-09-20 | Outpatient (CLI) | payer MEDICARE, OTHER, SELFPAY ==
[2022-09-20 17:00] LABS: CREATININE FINGERSTICK < 0.9 mg/dL (0.55-1.02); EGFR FINGERSTICK > 60.0000 mL/min (>60)
== END | disposition home or self-care (01) ==
LOC: MRI 16:09
PROVIDERS: PCP Family Medicine; Referring Provider Family Medicine; Visit Provider Family Medicine
DX: D50.0 Iron deficiency anemia secondary to blood loss (chronic) (principal)

== ENCOUNTER → 2022-10-23 | Outpatient (CLI) | payer MEDICARE, OTHER, SELFPAY ==
--- NOTE | 2022-10-23 16:00 | MRI_ITS ---
STUDY: MRA OF THE HEAD WITHOUT CONTRAST REASON FOR EXAM: Female, 66 years old. RIGHT trigeminal neuralgia TECHNIQUE: 3-D [id number] (TOF) imaging was performed with MIPs. The study was performed unenhanced. COMPARISON: MRI examination brain of the same date. Prior CT examination of 12/16/2021 FINDINGS: Normal bilateral petrous carotid arteries. Normal right cavernous carotid artery with a normal supraclinoid bifurcation. Normal left cavernous carotid artery with a normal supraclinoid bifurcation. Normal right A1 segments of the anterior cerebral artery. Normal left A1 segments of the anterior cerebral artery. Normal intact anterior communicating artery (ACOM). Normal bilateral A2 segments of the anterior cerebral arteries. Normal right M1 and M2 segments of the middle cerebral arteries, with a normal M1 bifurcation. Normal left M1 and M2 segments of the middle cerebral arteries, with a normal M1 bifurcation. Normal right posterior communicating artery (PCOM). Normal left posterior communicating artery (PCOM). Normal bilateral vertebral arteries. Normal basilar artery with a normal basilar bifurcation. The visualized bilateral superior cerebellar (SCA) arteries are normal. Normal bilateral P1, P2 and visualized P3 segments of the posterior cerebral arteries. There is no demonstrated aneurysm of the [place]. There is no major vessel occlusion or hemodynamically significant stenosis. Normal appearance of the visualized intracranial contents. MRI/MRA Head ONLY without Contrast IMPRESSION: Normal MRA of the head Electronically Signed: Won Murrieta MD at 21:03 EST ,
--- NOTE | 2022-10-23 16:45 | MRI_ITS ---
INDICATION: RIGHT trigeminal neuralgia EXAMINATION: MRI - MR Brain WO/W Contrast TECHNIQUE: MRI examination brain and skull base with attention the trigeminal nerves obtained with multiplanar multiecho pre and postcontrast imaging. IV Contrast Dosage and Agent: 30 mL Clariscan COMPARISON: None. FINDINGS: HEMISPHERES, CEREBELLUM AND BRAINSTEM: 1. The cerebral parenchyma, ventricular system, subarachnoid spaces have normal configuration and density. There is a normal gyral pattern. There is normal sainz/white differentiation. No midline shift.. 2. The hemispheric white matter has normal appearance. 3. No intraparenchymal mass, hemorrhage, or acute territorial infarct. 4. The cerebellum, brainstem, basilar and suprasellar cisterns have normal appearance. No Chiari malformation. 5. Normal appearance the brainstem and the emerging cranial nerves on high-resolution imaging. Trigeminal nerves are clearly identified and symmetric in appearance. No areas of abnormal enhancement. Normal appearance of the Meckel''s cave and position of the gasserian ganglion. No abnormal enhancement associated with the segmental divisions of the trigeminal nerves bilaterally. PITUITARY: Infundibulum and pituitary have normal configuration. Midline structures appear normal. CSF SPACES: Appropriate for age. No hydrocephalus. Basal cisterns are patent. VESSELS: 1. There are normal flow voids noted in the great vessels at the skull base ORBITS AND PARANASAL SINUSES: 1. Both globes, extraocular muscles, optic nerves and retrobulbar fat appear unremarkable. 2. Paranasal sinuses are clear. BONY ELEMENTS: Bony elements of the cranial vault, facial skeleton and skull base have normal appearance. SCALP AND SOFT TISSUES: Normal appearance of the soft tissues of the scalp and the visualized face OTHER: None MRI/Brain W/WO Contrast IMPRESSION: 1. Normal MRI examination brain without evidence mass, hemorrhage, or acute territorial infarct. No areas of fluid restriction, hemorrhage, or abnormal enhancement. 2. Normal appearance of the brainstem and the cisternal course of the emerging cranial nerves including the trigeminal nerves bilaterally. No areas of abnormal enhancement. Symmetric appearance of cavernous sinuses and Meckel''s cave bilaterally. Electronically Signed: Won Murrieta MD at 18:19 EST ,
== END | disposition home or self-care (01) ==
LOC: MRI 15:22
PROVIDERS: PCP Family Medicine; Visit Provider Family Medicine
DX: G50.0 Trigeminal neuralgia (principal)
CPT/HCPCS: 70544; 70553; A9575

== ENCOUNTER → 2022-10-30 | Outpatient (CLI) | payer MEDICARE, OTHER, SELFPAY ==
[2022-10-30 15:12] LABS: Absolute Lymphocyte Count 2.04 X10^3/uL (0.83-4.51); Absolute Neutrophil Count 3.1 X10^3/uL (2.0-7.7); Basophil# 0.06 X10^3/uL; Basophil% 1.1 % (0-1); Eosinophil# 0.13 X10^3/uL; Eosinophils% 2.3 % (0-5); Hematocrit 40.6 % (37-47); Hemoglobin 13.2 g/dL (12.0-15.0); Lymphocyte # 2.04 X10^3/ul (0.83-4.51); Lymphocyte % 35.8 % (19-41); Mean Corp Hgb Conc 32.5 g/dL (32-36); Mean Corpuscular Hgb 27.4 pg (27.0-32.0); Mean Corpuscular Volume 84.4 fL (81-99); Mean Platelet Vol. 9.8 fl (6.2-12.0); Monocyte# 0.33 X10^3/uL; Monocyte% 5.8 % (0-10); NRBC Flagged by Analyzer 0 % (0-5); Neutrophil # 3.11 X10^3/uL (2.7-7.7); Neutrophil % 54.5 % (47-70); Platelet Count 253 K/mm3 (150-450); RBC Distribution Width CV 12.9 % (11.6-14.6); RBC Distribution Width SD 39.7 fl (35.1-43.9); Red Blood Count 4.81 M/mm3 (4.2-5.4); White Blood Count 5.7 K/mm3 (4.4-11.0)
[2022-10-30 15:28] LABS: Vitamin D,25 Hydroxy 50.4 ng/mL
[2022-10-30 15:30] LABS: Hemoglobin A1c 5.5 % (3.8-5.6)
[2022-10-30 15:34] LABS: AST(SGOT) 16 U/L (15-37); Alanine Aminotransfer ALT/SGPT 34 U/L (13-56); Albumin, Serum 3.8 g/dL (3.2-5.0); Alkaline Phosphatase 48 U/L (45-117); Anion Gap 5 (5-15); BUN 15 mg/dL (7-18); BUN/Creat Ratio 13.6 RATIO (10-20); Calcium,Total 8.7 mg/dL (8.5-10.1); Chloride 104 mmol/L (98-107); Cholesterol 203 mg/dL (200); EST Glomerular Filtration Rate 53 mL/min (>60); Est Glom Filt Rate - Afr Amer 64 mL/min (>60); Globulin 3.7 g/dL (2.2-4.2); Glucose 97 mg/dL (74-106); High Density Lipoprotein 51 mg/dL; Potassium 3.8 mmol/L (3.5-5.1); Protein, Total 7.5 g/dL (6.4-8.2); Sodium Level 140 mmol/L (136-145); Thyroid Stim Hormone (TSH) 1.01 uIU/mL (0.358-3.74); Triglycerides 130 mg/dL; Very Low Density Lipoprotein 26 mg/dL (5-40)
== END | disposition home or self-care (01) ==
LOC: BFHLAB 13:04
PROVIDERS: PCP Family Medicine; Visit Provider Family Medicine
DX: I10 Essential (primary) hypertension (principal); E55.9 Vitamin D deficiency, unspecified; E03.9 Hypothyroidism, unspecified; R73.02 Impaired glucose tolerance (oral)
CPT/HCPCS: 36415; 80053; 80061; 82306; 83036; 84443; 85025

== ENCOUNTER → 2022-11-05 | Outpatient (CLI) | payer MEDICARE, OTHER, SELFPAY ==
--- NOTE | 2022-11-05 13:24 | BI_ITS ---
MAMMOGRAPHY - BILATERAL SCREENING REASON FOR EXAM: Female, 66 years old. Routine annual screening examination. PERTINENT HISTORY: Daughter with breast cancer. Remote left excisional breast biopsy. TECHNIQUE: Digital bilateral breast madelyn (3D mammographic acquisition) in the CC and MLO projections. 2-D mediolateral oblique (MLO) and craniocaudad (CC) views of both breasts were obtained. CAD: Full Field Digital Mammography with Computer Added Detection was performed. COMPARISON: Comparison is made with prior study dated 10/10/2021 and 10/04/2020. FINDINGS: Breast Composition: The breasts are almost entirely fatty. There are no dominant masses or suspicious calcifications. Stable small benign-appearing bilateral axillary nodes. No other significant abnormalities are identified. There has been no significant change since the prior study. BI/SCRN MAMM (CAD)W/MADELYN BILAT IMPRESSION: Stable bilateral screening mammogram. Yearly follow-up mammogram recommended. (A) ASSESSMENT CATEGORY: BIRADS Category 2: Benign. A letter regarding these results will be sent to the patient by the facility within 30 days. Approximately 10% of breast cancers are not detected by mammography. A normal mammogram should not delay biopsy of a clinically suspicious abnormality. [id number] Electronically Signed: Anatoliy Dumont MD at 14:54 EST ,
== END | disposition home or self-care (01) ==
LOC: OPBI 13:22
PROVIDERS: PCP Family Medicine; Visit Provider Family Medicine
DX: Z12.31 Encounter for screening mammogram for malignant neoplasm of breast (principal); Z80.3 Family history of malignant neoplasm of breast
CPT/HCPCS: 77063; 77067

== ENCOUNTER 2022-12-15 14:34 | Emergency (ER) | payer MEDICARE, OTHER, SELFPAY ==
[2022-12-15 14:36] VITALS: BP 231/85; PULSE 90; RESP 18; TEMP 36.1; O2SAT 92; BMI 59.2
--- NOTE | 2022-12-15 15:00 | EKG12_ITS ---
Test Reason : Blood Pressure : / mmHG Vent. Rate : 070 BPM Atrial Rate : 070 BPM P-R Int : 156 ms QRS Dur : 100 ms QT Int : 432 ms P-R-T Axes : 051 -31 060 degrees QTc Int : 466 ms Normal sinus rhythm Left axis deviation Minimal voltage criteria for LVH, may be normal variant ( Skip product ) Abnormal ECG Confirmed by PIOTR LEMONS, LEIGH ([id number]), design editor ORLIN RODRIGUEZ ([id number]) on 12/18/2022 9:26:32 AM Referred By: KELLI Confirmed By:LEIGH SALDAÑA MD
--- NOTE | 2022-12-15 15:17 | EX.ED.DYSGE1 ---
HPI <ROSALINA Mcdonald - Last Filed: 12/15/22 19:06> History of Present Illness Chief Complaint: Palpitations Narrative Narrative: Is a 67-year-old female with history of hypertension, obesity, hypothyroidism, hyperlipidemia, history of pulmonary embolus, no longer on anticoagulation presents to the emergency department for a feeling of dizziness/lightheadedness as well as palpitations and nausea. Patient states that she has not been feeling well over the last several weeks. Patient did not feel well last evening. She was working in the kitchen today, bent over to get something out of the floor hand, she then felt dizzy, stood up and felt like she might have to sit down secondary to being lightheaded. She then states that field sweaty, she had some diaphoresis as well as feeling of nausea. Patient did recently drive to [place] November 30, 2022. Denies any chest pain or shortness of breath. [facility] <ROSALINA Mcdonald - Last Filed: 12/15/22 19:06> [facility] Medical History (Updated 12/15/22 @ 18:49 by ROSALINA Mcdonald) Agatston CAC score, >400 Asthmatic bronchitis Chest discomfort Depression Edema Family history of ischemic heart disease GERD (gastroesophageal reflux disease) History of colon polyps History of pulmonary embolus (PE) (12/01/16) HTN (hypertension) Hyperlipidemia Hypothyroidism Morbid obesity Palpitations Pulmonary embolus (~2016) Skin lesion Sleep apnea Home Medications aspirin 81 mg chewable tablet 81 mg PO DAILY 12/01/16 [History Last Taken 11/30/16] citalopram 20 mg tablet 20 mg PO DAILY 12/01/16 [History Last Taken 11/30/16] furosemide 20 mg tablet 20 mg PO DAILY 12/01/16 [History Last Taken 11/30/16] levothyroxine 175 mcg tablet 175 mcg PO DAILY 12/01/16 [History Last Taken 12/01/16] losartan 50 mg-hydrochlorothiazide 12.5 mg tablet 1 ea PO DAILY 12/01/16 [History Last Taken 11/30/16] cholecalciferol (vitamin D3) 1,250 mcg (50,000 unit) capsule 50,000 unit PO QWEEK 04/15/19 [History Last Taken Unknown] losartan 100 mg-hydrochlorothiazide 12.5 mg tablet 1 tab PO DAILY #30 tabs 12/17/21 [Rx Last Taken Unknown] amlodipine 5 mg tablet 5 mg PO DAILY #30 tabs 12/15/22 [Rx Last Taken Unknown] Allergy/AdvReac Type Severity Reaction Status Date / Time erythromycin base Allergy Mild rash Verified 12/15/22 14:36 sertraline [From Zoloft] AdvReac Mild mental Verified 12/15/22 14:36 status change atorvastatin [From Lipitor] AdvReac Other Verified 12/15/22 14:36 lisinopril AdvReac Other Verified 12/15/22 14:36 Family History Father Myocardial infarction CAD (coronary artery disease) Mother Cancer ovarian Hypertension Hyperlipidemia Surgical History History of cholecystectomy History of colonoscopy (~2013) history of completion thyroidectomy History of hysterectomy History of partial thyroidectomy Social History Smoking Status: Never smoker ROS <ROSALINA Mcdonald - Last Filed: 12/15/22 19:06> ROS ED ROS Narrative Constitutional: Negative for fever, chills, weight loss. Positive for weakness Eyes: Negative for vision loss, vision change, double vision ENT: Negative for any sore throat, ear pain, congestion Cardiovascular: Negative for any chest pain, tightness. Positive palpitations Respiratory: Negative for any cough, sputum production, hemoptysis, dyspnea, dyspnea on exertion, orthopnea Gastrointestinal: Negative for any abdominal pain, nausea, vomiting, diarrhea, constipation, blood in stool, blood in vomit : Negative for any urinary frequency, dysuria, retention, blood in urine Muscle skeletal: Negative for any muscle joint pain, stiffness, myalgias, arthralgias, neck pain, back pain Neurological: Negative for any headache, syncope, numbness or tingling. Positive for dizziness, lightheadedness Skin: Negative for any rashes, lumps, itching, abrasions, lacerations Psychiatric: Negative for any depression, anxiety, stress, suicidal ideation, homicidal ideation Hematologic: Negative for any easy bruising, excessive bruising, easy bleeding Allergies: Negative for any eczema, hives, rash EXAM <ROSALINA Mcdonald - Last Filed: 12/15/22 19:06> Physical Exam Const Vital Signs: 12/15/22 14:36 12/15/22 14:47 12/15/22 15:00 Temperature 97.0 F L Temperature Source Temporal Pulse Rate 90 Respiratory Rate 18 Respiratory Effort Normal Non-Labored Respiratory Pattern Normal Blood Pressure 231/85 H Blood Pressure Mean 133 Pulse Ox 92 Oxygen Delivery Method Room Air Room Air 12/15/22 16:35 12/15/22 18:00 12/15/22 18:46 Temperature Temperature Source Pulse Rate 65 74 Respiratory Rate 16 19 H Respiratory Effort Respiratory Pattern Blood Pressure 185/66 H 204/70 H 174/54 H Blood Pressure Mean 105 114 94 Pulse Ox Oxygen Delivery Method <Roberto Cornelius MD - Last Filed: 12/15/22 20:53> Physical Exam Const Vital Signs: 12/15/22 14:36 12/15/22 14:47 12/15/22 15:00 Temperature 97.0 F L Temperature Source Temporal Pulse Rate 90 Respiratory Rate 18 Respiratory Effort Normal Non-Labored Respiratory Pattern Normal Blood Pressure 231/85 H Blood Pressure Mean 133 Pulse Ox 92 Oxygen Delivery Method Room Air Room Air 12/15/22 16:35 12/15/22 18:00 12/15/22 18:46 Temperature Temperature Source Pulse Rate 65 74 Respiratory Rate 16 19 H Respiratory Effort Respiratory Pattern Blood Pressure 185/66 H 204/70 H 174/54 H Blood Pressure Mean 105 114 94 Pulse Ox Oxygen Delivery Method [facility] <ROSALINA Mcdonald - Last Filed: 12/15/22 19:06> [facility] Narrative Medical decision making narrative: Vital signs reviewed. Patient's blood pressure was 212/60, this is abnormal for the patient. HEET: Head normocephalic atraumatic, TMs clear bilaterally. Posterior pharynx is clear, moist mucous membranes. Nares clear bilaterally. Neck: Supple with no lymphadenopathy or tenderness. No signs of meningismus, negative jolt sign. Cardiac: Regular rate and rhythm no murmurs gallops or rubs, equal peripheral pulses bilaterally. Respiratory: Lungs clear to auscultation bilaterally. No chest tenderness. Abdomen: Soft, nontender, nondistended. No abdominal bruit or pulsatile masses. No hepatosplenomegaly Extremities: No peripheral edema, no signs of gross trauma or deformity. Active full range of motion of all extremities. Neuro: Cranial nerves II through XII intact, no focal neurological deficits. Skin: Clean dry and intact with no rash, purpura, petechiae, vesicles or pustules. Backs/flank: No CVA tenderness, no midline spinal tenderness, no deformity. Psych: Normal mood and affect. No SI, HI or acute psychosis. Lab Data Labs: Laboratory Results - last 24 hr 12/15/22 12/15/22 12/15/22 15:10 15:10 15:10 WBC 6.8 RBC 4.32 Hgb 12.0 Hct 36.1 L MCV 83.6 MCH 27.8 MCHC 33.2 RDW Std Deviation 40.0 RDW Coeff of Katie 13.1 Plt Count 236 MPV 9.1 Immature Gran % (Auto) 0.400 Neut % (Auto) 65.1 Lymph % (Auto) 26.8 [place] % (Auto) 6.1 Eos % (Auto) 0.9 Baso % (Auto) 0.7 Absolute Neuts (auto) 4.4 Absolute Lymphs (auto) 1.81 Nucleated RBC % 0 PT 13.6 INR 1.1 D-Dimer Quant (PE/DVT) 0.51 H* Sodium 140 Potassium 3.6 Chloride 105 Carbon Dioxide 30.0 Anion Gap 5 BUN 18 Creatinine 1.07 H Estim Creat Clear Calc 46.54 Est GFR (MDRD) Af Amer 66 Est GFR (MDRD) Non-Af 55 L BUN/Creatinine Ratio 16.8 Glucose 154 H Calcium 8.5 Troponin I High Sens 7 B-Natriuretic Peptide TSH 0.99 12/15/22 12/15/22 15:10 17:15 WBC RBC Hgb Hct MCV MCH MCHC RDW Std Deviation RDW Coeff of Katie Plt Count MPV Immature Gran % (Auto) Neut % (Auto) Lymph % (Auto) [place] % (Auto) Eos % (Auto) Baso % (Auto) Absolute Neuts (auto) Absolute Lymphs (auto) Nucleated RBC % PT INR D-Dimer Quant (PE/DVT) Sodium Potassium Chloride Carbon Dioxide Anion Gap BUN Creatinine Estim Creat Clear Calc Est GFR (MDRD) Af Amer Est GFR (MDRD) Non-Af BUN/Creatinine Ratio Glucose Calcium Troponin I High Sens 10 B-Natriuretic Peptide 37.4 TSH Radiography Diagnostic Testing: Clinical Impression(s) from Imaging Studies Chest X-Ray 12/15/22 15:30 IMPRESSION: No radiographic evidence of acute cardiopulmonary disease. Electronically Signed: Gume Betts MD at 16:22 EST , EKG EKG shows normal sinus rhythm: Attestation: I personally reviewed and interpreted this EKG as follows: Interpretation: Sinus Rhythm Comments: EKG shows a normal sinus rhythm, rate of 70 bpm, TX 106 ms, QRS duration 100 ms, no acute ST elevation, no acute infarct noted Treatment and Re-Evaluation Narrative: All radiologic examinations were read, reviewed by the emergency department attending. From these reads, a plan of care will be put in place. Patient appears to be in no respiratory distress. Patient is hypertensive. Patient will receive a full cardiac work-up as well as a D-dimer concerning for any pulmonary embolus. Patient will be given hydralazine for her elevated blood pressure. This could be causing her lightheadedness. Patient did receive a full cardiac work-up, patient received 2 view chest x-ray showed no radiographic evidence of acute cardiopulmonary disease. Patient's EKG was unremarkable. No signs of ectopy. Patient CBC was unremarkable, patient's PT/INR within normal limits, patient's D-dimer was 0.51 which is elevated however when adjusted for age this is negative. Patient's CMP was unremarkable. Patient's TSH was 99 which is baseline for her since October. Patient had 2 troponins the first 1 was 7 the second 1 was 10 these were negative. Patient did have elevated blood pressure with 210/70. Patient was given 10 mg of hydralazine. On reassessment, the patient's blood pressure was 180/70. Differential diagnosis large PE, pneumonia, ACS, MS. At this time, there is no evidence to suspect any pulmonary embolus with a negative D-dimer. Consider CT scan of the chest however with a negative D-dimer, no hypoxia, no sharp chest pain, sinus rhythm, do not believe is necessary. There is no evidence suspect any ACS, MS, pneumonia. Patient blood pressure did jump back up to 205/71 prior to discharge. Patient was given another 10 mg of IV hydralazine. I did speak with the patient's PCP. She is on the max dose of losartan now however she will be placed on amlodipine 5 mg daily. She will follow-up with her PCP closely. <Roberto Cornelius MD - Last Filed: 12/15/22 20:53> [facility] Narrative Medical decision making narrative: Vital signs reviewed. Patient's blood pressure was 212/60, this is abnormal for the patient. HEET: Head normocephalic atraumatic, TMs clear bilaterally. Posterior pharynx is clear, moist mucous membranes. Nares clear bilaterally. Neck: Supple with no lymphadenopathy or tenderness. No signs of meningismus, negative jolt sign. Cardiac: Regular rate and rhythm no murmurs gallops or rubs, equal peripheral pulses bilaterally. Respiratory: Lungs clear to auscultation bilaterally. No chest tenderness. Abdomen: Soft, nontender, nondistended. No abdominal bruit or pulsatile masses. No hepatosplenomegaly Extremities: No peripheral edema, no signs of gross trauma or deformity. Active full range of motion of all extremities. Neuro: Cranial nerves II through XII intact, no focal neurological deficits. Skin: Clean dry and intact with no rash, purpura, petechiae, vesicles or pustules. Backs/flank: No CVA tenderness, no midline spinal tenderness, no deformity. Psych: Normal mood and affect. No SI, HI or acute psychosis. I have personally performed a face to face assessment of the patient and have reviewed the [facility] Note. I performed a substantive portion of the visit including all aspects of the following. My martin findings include: History is dizziness, palpitations, high blood pressure. Exam is afebrile. Vital signs noted. Regular rate and rhythm. Lungs clear to auscultation bilaterally. Abdomen soft and nontender. Neurological examination nonfocal and nonlateralizing. Medical Decision Making check labs. Check delta troponin. Blood pressure control. Discussed with Dr. Medina. Add amlodipine. Discharge. Other additions or changes: [None] Lab Data Labs: Laboratory Results - last 24 hr 12/15/22 12/15/22 12/15/22 15:10 15:10 15:10 WBC 6.8 RBC 4.32 Hgb 12.0 Hct 36.1 L MCV 83.6 MCH 27.8 MCHC 33.2 RDW Std Deviation 40.0 RDW Coeff of Katie 13.1 Plt Count 236 MPV 9.1 Immature Gran % (Auto) 0.400 Neut % (Auto) 65.1 Lymph % (Auto) 26.8 [place] % (Auto) 6.1 Eos % (Auto) 0.9 Baso % (Auto) 0.7 Absolute Neuts (auto) 4.4 Absolute Lymphs (auto) 1.81 Nucleated RBC % 0 PT 13.6 INR 1.1 D-Dimer Quant (PE/DVT) 0.51 H* Sodium 140 Potassium 3.6 Chloride 105 Carbon Dioxide 30.0 Anion Gap 5 BUN 18 Creatinine 1.07 H Estim Creat Clear Calc 46.54 Est GFR (MDRD) Af Amer 66 Est GFR (MDRD) Non-Af 55 L BUN/Creatinine Ratio 16.8 Glucose 154 H Calcium 8.5 Troponin I High Sens 7 B-Natriuretic Peptide TSH 0.99 12/15/22 12/15/22 15:10 17:15 WBC RBC Hgb Hct MCV MCH MCHC RDW Std Deviation RDW Coeff of Katie Plt Count MPV Immature Gran % (Auto) Neut % (Auto) Lymph % (Auto) [place] % (Auto) Eos % (Auto) Baso % (Auto) Absolute Neuts (auto) Absolute Lymphs (auto) Nucleated RBC % PT INR D-Dimer Quant (PE/DVT) Sodium Potassium Chloride Carbon Dioxide Anion Gap BUN Creatinine Estim Creat Clear Calc Est GFR (MDRD) Af Amer Est GFR (MDRD) Non-Af BUN/Creatinine Ratio Glucose Calcium Troponin I High Sens 10 B-Natriuretic Peptide 37.4 TSH Radiography Diagnostic Testing: Clinical Impression(s) from Imaging Studies Chest X-Ray 12/15/22 15:30 IMPRESSION: No radiographic evidence of acute cardiopulmonary disease. Electronically Signed: Gume Betts MD at 16:22 EST , Discharge Plan Triage Chief Complaint: Palpitations ED Midlevel Provider: Mandeep Zepeda ED Provider: Roberto Cornelius Dx/Rx/DC Orders Clinical Impression: Feeling light headed, Hypertension Instructions: Controlling High Blood Pressure, ED Dizziness, Uncertain Cause, ED High Blood Pressure Hypertension Prescriptions: New amlodipine 5 mg tablet 5 mg PO DAILY Qty: 30 1RF No Action levothyroxine 175 MCG tablet 175 mcg PO DAILY citalopram 20 MG tablet 20 mg PO DAILY aspirin 81 MG tablet,chewable 81 mg PO DAILY furosemide 20 MG tablet 20 mg PO DAILY losartan-hydrochlorothiazide 1 EACH tablet 1 ea PO DAILY cholecalciferol (vitamin D3) 50,000 unit capsule 50,000 unit PO QWEEK losartan-hydrochlorothiazide 100-12.5 mg tablet 1 tab PO DAILY Qty: 30 0RF Primary Care Provider: Ana Medina Referrals: Ana Medina MD [Primary Care Provider] - Activity Restrictions/Additional Instructions: You will start the amlodipine. This is daily. You can take this in the morning and losartan at night. Please follow-up with your PCP this upcoming week. Return for any worsening symptoms Disposition Disposition: Home, Self Care Discharge Date/Time: 12/15/22 19:22
[2022-12-15 15:25] LABS: Absolute Lymphocyte Count 1.81 X10^3/uL (0.83-4.51); Absolute Neutrophil Count 4.4 X10^3/uL (2.0-7.7); Basophil# 0.05 X10^3/uL; Basophil% 0.7 % (0-1); Eosinophil# 0.06 X10^3/uL; Eosinophils% 0.9 % (0-5); Hematocrit 36.1 % (37-47); Lymphocyte # 1.81 X10^3/ul (0.83-4.51); Lymphocyte % 26.8 % (19-41); Mean Corp Hgb Conc 33.2 g/dL (32-36); Mean Corpuscular Hgb 27.8 pg (27.0-32.0); Mean Corpuscular Volume 83.6 fL (81-99); Mean Platelet Vol. 9.1 fl (6.2-12.0); Monocyte# 0.41 X10^3/uL; Monocyte% 6.1 % (0-10); NRBC Flagged by Analyzer 0 % (0-5); Neutrophil # 4.39 X10^3/uL (2.7-7.7); Neutrophil % 65.1 % (47-70); Platelet Count 236 K/mm3 (150-450); RBC Distribution Width CV 13.1 % (11.6-14.6); Red Blood Count 4.32 M/mm3 (4.2-5.4); White Blood Count 6.8 K/mm3 (4.4-11.0)
--- NOTE | 2022-12-15 15:30 | RAD_ITS ---
INDICATION: chest pain EXAMINATION/TECHNIQUE: X-RAY - portable upright AP chest x-ray COMPARISON: 12/16/2021 FINDINGS: LINES/DEVICES: None. LUNGS: No consolidation, edema or effusion. No pneumothorax. MEDIASTINUM AND CARDIOVASCULAR STRUCTURES: Cardiac silhouette not enlarged. Central airways and mediastinal contour are unremarkable. BONES AND SOFT TISSUES: Unremarkable. RAD/Chest 1 View (Portable) IMPRESSION: No radiographic evidence of acute cardiopulmonary disease. Electronically Signed: Gume Betts MD at 16:22 EST ,
[2022-12-15] MEDS: hydrALAZINE 20 MG/ML Vial 10 MG IV ×2 (15:35→18:19)
[2022-12-15 15:38] LABS: International Normalized Ratio 1.1; Prothrombin Time (Protime)PT. 13.6 SECONDS (11.7-14.9)
[2022-12-15 15:48] LABS: Anion Gap 5 (5-15); BUN 18 mg/dL (7-18); BUN/Creat Ratio 16.8 RATIO (10-20); Calcium,Total 8.5 mg/dL (8.5-10.1); Chloride 105 mmol/L (98-107); Creatinine, Serum 1.07 mg/dL (0.55-1.02); EST Glomerular Filtration Rate 55 mL/min (>60); Est Glom Filt Rate - Afr Amer 66 mL/min (>60); Estimated Creatinine Clearance 46.54 ml/min; Glucose 154 mg/dL (74-106); Potassium 3.6 mmol/L (3.5-5.1); Sodium Level 140 mmol/L (136-145); Thyroid Stim Hormone (TSH) 0.99 uIU/mL (0.358-3.74); Troponin-I HS (w/2H Reflex) 7 pg/mL (3.0-54.0)
[2022-12-15 15:54] LABS: BNP,B-Type NATRIURETIC PEPTIDE 37.4 pg/mL (0-100)
[2022-12-15 15:56] LABS: D-Dimer Quantitative (DVT/PE) 0.51 FEU/ug/m (0.27-0.49)
[2022-12-15 16:35] VITALS: BP 185/66; PULSE 65; RESP 16
[2022-12-15 17:23] LABS: Reflex Troponin-HS? (from REC) Y
[2022-12-15 17:46] LABS: Troponin-I HS 10 pg/mL (3.0-54.0)
[2022-12-15 18:00] VITALS: BP 204/70
[2022-12-15 18:46] VITALS: BP 174/54; PULSE 74; RESP 19
== END 2022-12-15 19:22 | disposition home or self-care (01) ==
PROVIDERS: Nurse Practitioner; Emergency Provider Emergency Medicine; PCP Family Medicine; Visit Provider Emergency Medicine
DX: R42 Dizziness and giddiness (principal); R00.2 Palpitations; I10 Essential (primary) hypertension; E78.5 Hyperlipidemia, unspecified; E66.9 Obesity, unspecified; Z86.711 Personal history of pulmonary embolism
CPT/HCPCS: 71045; 80048; 83880; 84443; 84484; 85025; 85379; 85610; 93005; 96374; 96376; 99284; A4216

== ENCOUNTER → 2023-05-22 | Outpatient (CLI) | payer MEDICARE, OTHER, SELFPAY ==
--- NOTE | 2023-05-22 06:25 | ECHOD_ITS ---
Reason For Study: CAD Procedure This was a 2D Doppler, Color Flow transthoracic echocardiogram. Exam performed in department. Left Ventricle Normal LV size. Mild concentric left ventricular hypertrophy. Left ventricular systolic function is normal. The estimated ejection fraction is 55 %. No regional wall motion abnormalities noted. Right Ventricle Normal RV size. Normal systolic function. Atria The left atrium is mildly enlarged. Normal right atrium. Mitral Valve Normal mitral valve. Tricuspid Valve Normal tricuspid valve. Mild to moderate (1-2+) tricuspid valve insufficiency. Pulmonary artery systolic pressure is 33 mmHg. Aortic Valve The aortic valve is not well visualized. Mild (1+) aortic valve insufficiency. Pulmonic Valve The pulmonic valve is not well visualized. Great Vessels Normal aortic root. The pulmonary artery is normal size. Normal inferior vena cava. Pericardium/Pleural No pericardial effusion. MMode/2D Measurements & Calculations LVIDd: 5.5 cm IVSd: 1.2 cm LVOT diam: 2.1 cm LVIDs: 3.3 cm LVPWd: 1.2 cm LVOT area: 3.4 cm2 RVDd: 3.7 cm FS: 41.2 % Ao root diam: 3.1 cm LAV(MOD-bp): 75.3 ml LVAd ap4: 30.3 cm2 LA dimension: 4.7 cm LAV(MOD-bp) Indexed: 29.7 ml/m2 LVLd ap4: 8.2 cm LAV(MOD-sp2): 65.0 ml EDV(MOD-sp4): 92.9 ml LAV(MOD-sp4): 78.9 ml EDV(sp4-el): 95.1 ml LVAs ap4: 16.9 cm2 LVLs ap4: 7.1 cm ESV(MOD-sp4): 35.5 ml ESV(sp4-el): 34.5 ml EF(MOD-sp4): 61.8 % EF(sp4-el): 63.7 % SV(MOD-sp4): 57.4 ml SV(sp4-el): 60.6 ml LA A4 area: 24.2 cm2 LA dimension(2D): 4.8 cm RA A4 area: 16.5 cm2 TAPSE: 3.5 cm Time Measurements MV dec time: 0.23 sec Doppler Measurements & Calculations MV E max darin: 115.1 cm/sec Lat Peak E' Darin: 5.4 cm/sec Med Peak E' Darin: 5.9 cm/sec MV A max darin: 97.8 cm/sec E/E' lat: 21.4 E/E' med: 19.7 MV E/A: 1.2 Ao V2 max: 211.7 cm/sec AI max darin: 457.1 cm/sec MV dec slope: 565.4 cm/sec2 Ao max P.0 mmHg AI max P.6 mmHg Ao V2 mean: 142.0 cm/sec Ao mean P.2 mmHg AI dec slope: 274.5 cm/sec2 Ao V2 VTI: 57.2 cm AI P1/2t: 487.7 msec AV (velocity ratio): 0.70 ANNA(I,D): 2.4 cm2 ANNA(V,D): 2.3 cm2 LV V1 max: 140.4 cm/sec SV(LVOT): 137.8 ml PA V2 max: 106.3 cm/sec LV V1 max P.9 mmHg LV V1 mean P.3 mmHg LV V1 mean: 97.7 cm/sec LV V1 VTI: 40.2 cm TR max darin: 268.4 cm/sec TR max P.8 mmHg ECHO/Echo Complete Interpretation Summary Normal LV size. Left ventricular systolic function is normal. The estimated ejection fraction is 55 %. Mild concentric left ventricular hypertrophy. The left atrium is mildly enlarged. Ordering Physician: Moreno Gupta Referring Physician: Ana Medina Performed By: Kisha Morrow RVT, RDCS and Student
--- NOTE | 2023-05-22 11:40 | STRESSREP ---
Stress Test Report Pharmacologic myocardial perfusion stress test. 67-year-old lady with a history of chest pain and coronary artery disease Resting EKG demonstrates sinus rhythm with a rate of 60 bpm. Resting blood pressure is 130/72 mmHg. 0.4 mg of regadenoson was infused per usual protocol followed by rapid intravenous saline flush injection. Continuous EKG monitoring was performed. The maximum heart rate was 71 bpm which was 46% of max impacted heart rate the maximum workload was 1 metabolic equivalent. At rest there were no ST or T wave changes noted to suggest ischemia and at peak infusion nonspecific ST changes were noted which did not meet the criteria for ischemia. No clinical angina is noted. The final blood pressure was 128/80 mmHg. Myocardial perfusion protocol. 14.9 mCi of technetium 99m sestamibi was injected at rest. 0.4 mg of regadenoson was infused per usual protocol. At peak infusion 44.6 mCi of technetium 99m sestamibi was injected stress images were obtained stress and rest images were reconstructed and compared in the short axis vertical long and horizontal long axis. Gated images were also obtained. Perfusion SPECT analysis: Review of the stress images demonstrate normal uptake of tracer noted in all areas of the myocardium. The resting images similar demonstrated normal uptake of tracer noted in all areas of the myocardium. No areas of reversibility are noted to suggest ischemia and no previous infarct is noted. Gated SPECT analysis: The gated ejection fraction is 74%. Conclusion: Normal pharmacologic myocardial perfusion stress test. Preserved ejection fraction.
== END | disposition home or self-care (01) ==
LOC: CVS 06:22
PROVIDERS: PCP Family Medicine; Referring Provider Internal Medicine Cardiovascular Disease; Visit Provider Internal Medicine Cardiovascular Disease
DX: I25.10 Atherosclerotic heart disease of native coronary artery without angina pectoris (principal); G47.30 Sleep apnea, unspecified; R93.1 Abnormal findings on diagnostic imaging of heart and coronary circulation
CPT/HCPCS: 78452; 93017; 93306; A9500; A4216; J2785

== ENCOUNTER → 2023-07-03 | Outpatient (CLI) | payer MEDICARE, OTHER, SELFPAY ==
[2023-07-03 15:38] LABS: Anion Gap 4 (5-15); BUN 15 mg/dL (7-18); BUN/Creat Ratio 14.7 RATIO (10-20); Calcium,Total 8.4 mg/dL (8.5-10.1); Chloride 106 mmol/L (98-107); Creatinine, Serum 1.02 mg/dL (0.55-1.02); EST Glomerular Filtration Rate 58 mL/min (>60); Est Glom Filt Rate - Afr Amer 70 mL/min (>60); Glucose 121 mg/dL (74-106); Potassium 3.4 mmol/L (3.5-5.1); Sodium Level 141 mmol/L (136-145)
== END | disposition home or self-care (01) ==
PROVIDERS: PCP Family Medicine; Referring Provider Nurse Practitioner Family; Visit Provider Nurse Practitioner Family
DX: R60.9 Edema, unspecified (principal); I10 Essential (primary) hypertension
CPT/HCPCS: 36415; 80048

== ENCOUNTER → 2023-07-25 | Outpatient (CLI) | payer MEDICARE, OTHER, SELFPAY ==
[2023-07-25 15:04] LABS: Absolute Lymphocyte Count 2.48 X10^3/uL (0.83-4.51); Absolute Neutrophil Count 3.3 X10^3/uL (2.0-7.7); Basophil# 0.07 X10^3/uL; Basophil% 1.1 % (0-1); Eosinophil# 0.14 X10^3/uL; Eosinophils% 2.2 % (0-5); Hematocrit 40.8 % (37-47); Hemoglobin 13.4 g/dL (12.0-15.0); Lymphocyte # 2.48 X10^3/ul (0.83-4.51); Lymphocyte % 38.4 % (19-41); Mean Corp Hgb Conc 32.8 g/dL (32-36); Mean Corpuscular Hgb 27.9 pg (27.0-32.0); Mean Platelet Vol. 9.2 fl (6.2-12.0); Monocyte# 0.43 X10^3/uL; Monocyte% 6.7 % (0-10); NRBC Flagged by Analyzer 0 % (0-5); Neutrophil # 3.32 X10^3/uL (2.7-7.7); Neutrophil % 51.3 % (47-70); Platelet Count 283 K/mm3 (150-450); RBC Distribution Width CV 13.4 % (11.6-14.6); RBC Distribution Width SD 41.7 fl (35.1-43.9); White Blood Count 6.5 K/mm3 (4.4-11.0)
[2023-07-25 15:53] LABS: ALB/GLOB Ratio 0.9 RATIO (0.9-2.4); AST(SGOT) 22 U/L (15-37); Alanine Aminotransfer ALT/SGPT 37 U/L (13-56); Albumin, Serum 3.8 g/dL (3.2-5.0); Alkaline Phosphatase 53 U/L (45-117); Anion Gap 7 (5-15); BUN 15 mg/dL (7-18); BUN/Creat Ratio 13.6 RATIO (10-20); Calcium,Total 8.7 mg/dL (8.5-10.1); Chloride 104 mmol/L (98-107); Cholesterol 162 mg/dL (200); EST Glomerular Filtration Rate 53 mL/min (>60); Est Glom Filt Rate - Afr Amer 64 mL/min (>60); Globulin 4.2 g/dL (2.2-4.2); Glucose 100 mg/dL (74-106); High Density Lipoprotein 53 mg/dL; Sodium Level 139 mmol/L (136-145); Thyroid Stim Hormone (TSH) 3.49 uIU/mL (0.358-3.74); Triglycerides 128 mg/dL; Very Low Density Lipoprotein 26 mg/dL (5-40)
[2023-07-25 15:59] LABS: Hemoglobin A1c 5.4 % (3.8-5.6)
== END | disposition home or self-care (01) ==
LOC: BFHLAB 11:25
PROVIDERS: PCP Family Medicine; Referring Provider Family Medicine; Visit Provider Family Medicine
DX: Z00.00 Encounter for general adult medical examination without abnormal findings (principal); R73.02 Impaired glucose tolerance (oral); E03.9 Hypothyroidism, unspecified; E55.9 Vitamin D deficiency, unspecified; I10 Essential (primary) hypertension
CPT/HCPCS: 36415; 80053; 80061; 83036; 84443; 85025

== ENCOUNTER → 2023-08-08 | Outpatient (CLI) | payer MEDICARE, OTHER, SELFPAY ==
--- NOTE | 2023-08-08 11:02 | BD_ITS ---
STUDY: DUAL ENERGY X-RAY ABSORPTIOMETRY / DXA REASON FOR EXAM: Female, 67 years old. [id number] TECHNIQUE: Bone Mineral Density (BMD) measurements of lumbar spine and bilateral hips were obtained. COMPARISON: None. FINDINGS: Lumbar Spine (L1-L4): g/cm2 (1.290) / T-score (2.5) / Z-score (4.3) Findings are suggestive of normal bone density with a low fracture risk. Left Femur Total: g/cm2 (1.147) / T-score (1.7) / Z-score (3.0) Left Femoral Neck: g/cm2 (0.904) / T-score (0.5) / Z-score (2.1) Right Femur Total: g/cm2 (1.117) / T-score (1.4) / Z-score (2.8) Right Femoral Neck: g/cm2 (0.831) / T-score (-0.2) / Z-score (1.4) BD/Dexa Bone Density Study IMPRESSION: The patient is considered normal as outlined below according to World Justin Organization (WHO) criteria with a low fracture risk. Reference Information: The T-score is the number of standard deviations above or below the standard which is normal for young adults at their peak bone mineral density. The World Health Organization (WHO) interprets the T-scores as follows: Above -1 Normal bone density Between -1 and -2.5 Osteopenia Equal to / or below -2.5 Osteoporosis As a practical clinical guideline, osteopenia may be graded as follows: Mild -1 through -1.5 Moderate -1.6 through -2.0 Severe -2.1 through -2.4 The Z-score is the number of standard deviations above or below age-matched controls. A Z-score of less than -1.5 would be considered abnormal. References: 1. NIH Osteoporosis and Related Bone Diseases www osteo.org 2. International Society for Clinical Densitometry www iscd.org 3. National Osteoporosis Foundation www nof.org Electronically Signed: Anatoliy Dumont MD at 12:51 EDT ,
== END | disposition home or self-care (01) ==
LOC: OPBD 10:55
PROVIDERS: PCP Family Medicine; Referring Provider Family Medicine; Visit Provider Family Medicine
DX: Z78.0 Asymptomatic menopausal state (principal)
CPT/HCPCS: 77080

== ENCOUNTER → 2023-09-10 | Outpatient (CLI) | payer MEDICARE, OTHER, SELFPAY ==
[2023-09-14 04:07] LABS: H. PYLORI STOOL AG Negative (Negative)
== END | disposition home or self-care (01) ==
LOC: LABSPEC 13:44
PROVIDERS: PCP Family Medicine; Visit Provider Family Medicine
DX: R10.13 Epigastric pain (principal)
CPT/HCPCS: 87338

== ENCOUNTER → 2023-11-06 | Outpatient (CLI) | payer MEDICARE, OTHER, SELFPAY ==
--- NOTE | 2023-11-06 11:45 | BI_ITS ---
MAMMOGRAPHY - BILATERAL SCREENING REASON FOR EXAM: Female, 68 years old. Routine annual screening examination. PERTINENT HISTORY: Daughter with breast cancer. Remote left excisional breast biopsy. TECHNIQUE: Digital bilateral breast madelyn (3D mammographic acquisition) in the CC and MLO projections. 2-D mediolateral oblique (MLO) and craniocaudad (CC) views of both breasts were obtained. CAD: Full Field Digital Mammography with Computer Added Detection was performed. COMPARISON: Comparison is made with prior study dated November 05, 2022 and October 10, 2021. FINDINGS: Breast Composition: The breasts are almost entirely fatty. There are no dominant masses or suspicious calcifications. No other significant abnormalities are identified. There has been no significant change since the prior study. BI/SCRN MAMM (CAD)W/MADELYN BILAT IMPRESSION: Stable bilateral screening mammogram. Yearly follow-up mammogram recommended. (A) ASSESSMENT CATEGORY: BIRADS Category 1: Negative. A letter regarding these results will be sent to the patient by the facility within 30 days. Approximately 10% of breast cancers are not detected by mammography. A normal mammogram should not delay biopsy of a clinically suspicious abnormality. [id number] Electronically Signed: Anatoliy Dumont MD at 8:44 EST ,
--- OUTSIDE RECORDS SUMMARY | 2023-11-06 11:56 | XMS RPT_ITS | CCD ---
Author Name Unknown Address [address] [place] [address] Organization [facility] Care Team Providers Care Needle Punch Machine Operator Name Role Phone Kamaljit Traore Primary Care Provider ELISEO MERCER Attending Unavaila ble QIANA, KAMALJIT SPEARS Primary Care Unavailable ELISEO MERCER Attending Unavaila KAMALJIT Moore Primary Care Unavailable ELISEO MERCER Attending Unavaila delilah TRAORE, KAMALJIT SPEARS Primary Care Unavailable ELISEO MERCER Attending Unavaila delilah TRAORE, KAMALJIT SPEARS Primary Care Unavailable ELISEO MERCER Attending Unavaila ble KAMALJIT TRAORE Primary Care Unavailable Kamaljit Traore Primary Care Provider Allergies Allergy Classification Reported Allergen(s) Allergy Type Date of Onset Reaction(s) Facility (3 sources) Erythromycin; Translations: [Unknown] Drug Allergy 03-12-2019 [facility] (2 sources) Sertraline Drug Allergy 03-12-2019 [facility] Medications Current Medications Medication Drug Class(es) Dates Sig (Normalized) Sig (Original) aspirin 81 mg delayed release oral tablet (2 sources) Platelet Aggregation Inhibitor, Nonsteroidal Anti-inflammatory Drug take 1 tablet by mouth once daily aspirin 81 MG EC tablet Take 81 mg by mouth daily . 0 Active atorvastatin 40 mg oral tablet (1 source) HMG-CoA Reductase Inhibitor Start: 04-28-2019 take 1 tablet by mouth once daily atorvastatin (LIPITOR) 40 MG tablet Take 1 (one) tablet (40 mg total) by mouth daily . 30 tablet 11 04/28/2019 Active buPROPion hydrochloride 75 mg oral tablet (2 sources) Aminoketone take 1 tablet by mouth once daily buPROPion (WELLBUTRIN) 75 MG tablet Take 75 mg by mouth daily . 0 Active citalopram 20 mg oral tablet (2 sources) Serotonin Reuptake Inhibitor take 1 tablet by mouth once daily citalopram (CELEXA) 20 MG tablet Take 20 mg by mouth daily . 0 Active ergocalciferol 36060 unt oral capsule (2 sources) Provitamin D2 Compound take 1 capsule by mouth every week ergocalciferol (ERGOCALCIFEROL) 50,000 unit capsule Take 50,000 Units by mouth once a week . 0 Active furosemide 20 mg oral tablet (2 sources) Loop Diuretic take 1 tablet by mouth once daily as needed furosemide (LASIX) 20 MG tablet Take 20 mg by mouth daily as needed . 0 Active levothyroxine sodium 0.175 mg oral tablet (2 sources) l-Thyroxine take 1 tablet by mouth once daily levothyroxine (SYNTHROID, LEVOTHROID) 175 MCG tablet Take 175 mcg by mouth daily . 0 Active raNITIdine 150 mg oral tablet (2 sources) Histamine-2 Receptor Antagonist take 1 tablet by mouth once daily ranitidine (ZANTAC) 150 MG tablet Take 150 mg by mouth daily . 0 Active Problems Active Problems Problem Classification Problem Date Documented Da te Episodic/Chronic Essential hypertension (3 sources) Essential hypertension; Translations: [Hypertensive disorder] Onset: 03-12-2019 03-12-2019 Chronic Other nutritional; endocrine; and metabolic disorders (1 source) Morbid (severe) obesity due to excess calories; Translations: [Class 3 severe obesity due to excess calories without serious comorbidity with body mass index (BMI) of 40.0 to 44.9 in adult (HCC)] Chronic Other nutritional; endocrine; and metabolic disorders (2 sources) Obesity; Translations: [Obesity] Onset: 03-12-2019 03-12-2019 Chronic Past or Other Problems Problem Classification Problem Date Documented Da te Episodic/Chronic Nonspecific chest pain (3 sources) Chest pain; Translations: [Chest pain, unspecified type] Onset: 03-12-2019 03-12-2019 Episodic Pulmonary heart disease (3 sources) H/O: pulmonary embolus; Translations: [History of pulmonary embolus (PE)] Onset: 10-21-2016 03-12-2019 Episodic Results Test Name Value Interpretation Reference Range Facil ity Vital Signs Date Time Vital Sign Value Performing Clinician Kelly langley 03-12-2019 11:04-0400 BMI (Body Mass Index) 57.19 kg/m2 Eliseo Mercer [facility] 03-12-2019 11:040400 BP Diastolic 84 mm[Hg] Eliseo Mercer [facility] 03-12-2019 11:04-0400 BP Systolic 167 mm[Hg] Eliseo Mercer [facility] 03-12-2019 11:04-0400 Height 165.1 cm Eliseo Mercer [facility] 03-12-2019 11:04-0400 Pulse (Heart Rate) 64 /min Eliseo Ochoaeugenia [facility] 03-12-2019 11:040400 Pulse Oximetry 95 % Eliseo Mercer [facility] 03-12-2019 11:04-0400 Weight 155.9 kg Eliseo Ochoaeugenia [facility] Encounters Encounter Date Encounter Type Care Provider Facility Start: 12-22-2020 End: 12-22-2020 Orders Only Liliana Velez Work Phone: [facility] Start: 04-24-2019 Patient encounter procedure ELISEO MERCER [facility] Start: 04-17-2019 Patient encounter procedure ELISEO MERCER [facility] Start: 04-03-2019 Patient encounter procedure ELISEO MERCER [facility] Start: 03-13-2019 Patient encounter procedure ELISEO MERCER [facility] Start: 03-12-2019 End: 03-12-2019 Patient encounter procedure ELISEO JIM MERCER [facility] Start: 03-12-2019 End: 03-12-2019 Office outpatient new 30 minutes Eliseo Mercer Work Phone: [facility] Office Procedures Date Procedure Procedure Detail Performing Clinician Start: 03-12-2019 12 lead ECG Eliseo Mercer Work Phone: Plan of Treatment Date Care Activity Detail Author Start: 09-17-2022 Tetanus vaccination Tetanus: Every 1 0yrs [facility] Start: 06-21-2020 Influenza vaccination given Se quential Influenza Vaccine (#1) [facility] Start: 06-21-2019 Influenza vaccination given SE QUENTIAL INFLUENZA VACCINE (Season Ended) [facility] Start: 2006 Administration of he rpes zoster vaccine Zoster Vaccines (1 of 2) [facility] Start: 2006 Screening for malign ant neoplasm of colon [facility] Start: 1974 Hepatitis C antibody , confirmatory test Hepatitis C Screening [facility] Start: 1972 COVID-19 Vaccine (1 of 2) COVID-19 V accine (1 of 2) [facility] Start: 1971 HIV screening HIV Screening [facility] Start: 1968 Adolescent depressio n screening assessment Depression Screening (PHQ9) [facility] Start: 1959 History and physical examination, annual for health maintenance Wellness Visit [facility] Start: 1956 Hepatitis C antibody , confirmatory test HEPATITIS C SCREENING [facility] Start: 1956 Protein mass conc Mammogram [facility] Start: 1956 Screening for malign ant neoplasm of cervix PAP SMEAR [facility] Start: 1956 Screening for malign ant neoplasm of colon Colorectal Cancer Screening: Colonoscopy [facility] Start: 1956 Screening mammography [facility] Start: 1956 Tetanus vaccination TETANUS EVERY 10 YR [facility] End: 03-12-2020 Cardiac computed tomography for calcium scoring CT CALCIUM SCORE SCREENING Imaging Routine Chest pain, unspecified type History of pulmonary embolus (PE) 1 Occurrences starting 03/12/2019 until 03/12/2020 [facility] Payers Date Payer Category Payer Unknown [facility] 2018-Present xxxxxxxxxxxxx [id number] 2018 Unknown [id number] 2018 [facility] [id number] 2018-Present [id number] 1956 Unknown [id number] 1956 Unknown [id number] 1956 Unknown [id number] 1956 Unknown [id number] 1956 Unknown [id number] Social History Date Type Detail Facility Start: 03-12-2019 Tobacco smoking status NHIS Never sm [facility] Sex Assigned At Not on file [facility] Start: 03-12-2019 Tobacco use and exposure Never used [facility] Start: 03-12-2019 Alcohol intake Ex-drinker (finding) [facility] Reason for Referral Status Reason Specialty Diagnoses / Procedures Referred By Contact Referred To Contact Pending Review Radiology Diagnoses Chest pain, unspecified type History of pulmonary embolus (PE) Procedures CT CALCIUM SCORE SCREENING Eliseo Mercer MD [address] [place] [address] Status Reason Specialty Diagnoses / Procedures Referre d By Contact Referred To Contact Closed Cardiology Diagnoses Chest pain, unspecified type Procedures ECG 12 Lead Eliseo Mercer MD [address] [place] [address] History of Present Illness * Eliseo Mercer MD - 03/12/2019 11:20 AM EDT I had the opportunity to evaluate Fany Carmen in my office on 03/12/19. Fouzia is a pleasant 7 functional 63-year-old woman with long history of GERD, borderline hypertension and hypothyroidism. She does have a history of a possible small pulmonary embolus approximately 2 years earlier which appears to have been unprovoked although there is some question regarding this diagnosis and she said no recurrent issues. Recently while visiting her daughter in [place] she experienced some chest discomfort while [place] the mountains. This resolved quite rapidly with rest and did not recur. Since returning home she said no further symptoms although is not incredibly physically active. She presents now for further cardiac evaluation.. History: Past Medical History: Diagnosis Date Colon polyp Disease of thyroid gland hypothyroidism GERD (gastroesophageal reflux disease) History of pulmonary embolus (PE) 2017 Hypertension IBS (irritable bowel syndrome) Osteoarthritis Past Surgical History: Procedure Laterality Date CHOLECYSTECTOMY PARTIAL HYSTERECTOMY THYROIDECTOMY Family History Problem Relation Age of Onset Cancer Mother ovarian ca Hyperlipidemia Mother Hypertension Mother Heart attack Father Heart disease Father Social History Socioeconomic History Marital status: Spouse name: Not on file Number of children: Not on file Years of education: Not on file Highest education level: Not on file Occupational History Not on file Social Needs Financial resource strain: Not on file Food insecurity: Worry: Not on file Inability: Not on file Transportation needs: Medical: Not on file Non-medical: Not on file Tobacco Use Smoking status: Never Smoker Smokeless tobacco: Never Used Substance and Sexual Activity Alcohol use: Not Currently Drug use: Not Currently Sexual activity: Not on file Lifestyle Physical activity: Days per week: Not on file Minutes per session: Not on file Stress: Not on file Relationships Social connections: Talks on phone: Not on file Gets together: Not on file Attends mu-ism service: Not on file Active member of club or organization: Not on file Attends meetings of clubs or organizations: Not on file Relationship status: Not on file Other Topics Concern Not on file Social History Narrative Not on file Allergy Information: I have reviewed the patient's allergies. Eryc [erythromycin] and Zoloft [sertraline] Home Medications: Outpatient Medications as of 03/12/2019 Medication Sig buPROPion (WELLBUTRIN) 75 MG tablet Take 75 mg by mouth daily . citalopram (CELEXA) 20 MG tablet Take 20 mg by mouth daily . ergocalciferol (ERGOCALCIFEROL) 50,000 unit capsule Take 50,000 Units by mouth once a week . furosemide (LASIX) 20 MG tablet Take 20 mg by mouth daily as needed . levothyroxine (SYNTHROID, LEVOTHROID) 175 MCG tablet Take 175 mcg by mouth daily . ranitidine (ZANTAC) 150 MG tablet Take 150 mg by mouth daily . Review of Systems: Documented in Medical Record Physical Examination Vital Signs: Blood Pressure (Abnormal) 167/84 (BP Location: Left arm, Patient Position: Sitting) Pulse 64 Height 5' 5 Weight (Abnormal) 155.9 kg (343 lb 11.2 oz) Oxygen Saturation 95% Body Mass Index 57.19 kg/m Physical Exam: General: No acute distress, alert, and oriented x3. Skin: Normal turgor, well-hydrated, no rashes noted. HEENT: Normocephalic, LITZY, EOMI Neck: Supple, no thyromegaly,no palpable adenopathy, no bruits Cardiovascular: Regular rate and rhythm. Normal S1, S2. No clicks, rubs, murmurs, or gallops noted.. No jugular venous distention. No peripheral edema. Respiratory: Clear to auscultation bilaterally without wheezes, rhonchi, or rales noted. Abdominal: Soft, nontender, nondistended, No HSM, masses noted or bruits noted. Extremities : No clubbing or cyanosis. Pulses intact Neurological: Cranial nerves 2 through 12 intact grossly. No focal neurological deficits noted. Psych: Normal mood and affect. EKG: Normal sinus rhythm with no abnormalities Assessment and Plan/Recommendations: Chest pain Abas blood pressure is quite nonspecific and likely not cardiac in nature. She does however haverisk factors for coronary disease, the most significant which is her family history. I arranged fora calcium scoring cardiac CT and will base further evaluation or therapy on these results. Hypertension Her blood pressure was moderately elevated today on several determinations. I made no changes in her regimen however did recommend she begin following her blood pressure at home on a daily basis. We will plan to contact her in several weeks to determine whether therapy is indicated. Obesity Unfortunately Fany's weight and deconditioning remain major issues. We discussed this although I am uncertain whether she appears motivated to make significant changes. * Kisha Muhammad MA - 03/12/2019 11:04 AM EDT Review of Systems Constitution: Positive for malaise/fatigue and weight gain. Negative for diaphoresis and weight loss. HENT: Negative for hearing loss, nosebleeds and tinnitus. Eyes: Negative for blurred vision and visual disturbance. Cardiovascular: Positive for dyspnea on exertion and leg swelling. Negative for chest pain, claudication, cyanosis, irregular heartbeat, near-syncope, orthopnea, palpitations, paroxysmal nocturnal dyspnea and syncope. Respiratory: Positive for shortness of breath and snoring. Negative for hemoptysis. Endocrine: Negative for cold intolerance and heat intolerance. Hematologic/Lymphatic: Bruises/bleeds easily. Skin: Negative for flushing, poor wound healing and rash. Musculoskeletal: Positive for muscle weakness. Negative for back pain and myalgias. Gastrointestinal: Negative for abdominal pain, change in bowel habit, melena, nausea and vomiting. Genitourinary: Negative for decreased libido and hematuria. Neurological: Positive for numbness. Negative for loss of balance. Psychiatric/Behavioral: Negative for memory loss. The patient is not nervous/anxious. documented in this encounter Assessments Diagnosis Chest pain, unspecified type- Primary History of pulmonary embolus (PE) Essential hypertension Unspecified essential hypertension Class 3 severe obesity due to excess calories without serious comorbidity with body mass index (BMI) of 40.0 to 44.9 in adult (HCC) Advance Directives Documents on File Type Date Recorded Patient Framing Specialist Expl anation Advance Directives and Living Will Documents on File Type Date Recorded Patient Framing Specialist Expl anation Advance Directives and Living Will Summary Purpose Family History No Family History Records FoundNo Family History Records Found Additional Source Comments Reason for Visit (unrecogniz ed section and content) Assessment & Plan Note - Eliseo Mercer MD - 03/12/2019 11:25 AM EDTAssessment & Plan Note - Eliseo Mercer MD - 03/12/2019 11:23 AM EDT Miscellaneous Notes (unrecog nized section and content) Associated Problem(s): Obesity Unfortunately Abas weight and deconditioning remain major issues. We discussed this although I am uncertain whether she appears motivated to make significant changes. Associated Problem(s): Hypertension Her blood pressure was moderately elevated today on several determinations. I made no changes in her regimen however did recommend she begin following her blood pressure at home on a daily basis. We will plan to contact her in several weeks to determine whether therapy is indicated. Associated Problem(s): Chest pain Abas blood pressure is quite nonspecific and likely not cardiac in nature. She does however have risk factors for coronary disease, the most significant which is her family history. I arranged for a calcium scoring cardiac CT and will base further evaluation or therapy on these results. documented in this encounter INFORMATION SOURCE (unrecogn ized section and content) DATE CREATED AUTHOR AUTHOR'S FLOR ATION 06/20/2019 [facility] FOR RECORDS PERTAINING TO PATIENTS WHO ARE OR HAVE BEEN ENROLLED IN A CHEMICAL DEPENDENCY/SUBSTANCEABUSE PROGRAM, SOME INFORMATION MAY BE OMITTED. This clinical summary was aggregated from multiple sources. Caution should be exercised in using it in the provision of clinical care. This summary normalizes information from multiple sources, and as a consequence, information in this document may materially change the coding, format and clinical context of patient data. In addition, data may be omitted in some cases. CLINICAL DECISIONS SHOULD BE BASED ON THE PRIMARY CLINICAL RECORDS. [facility] [employer] provides no warranty or guarantee of the accuracy or completeness of information in this document.
== END | disposition home or self-care (01) ==
LOC: OPBI 11:33
PROVIDERS: PCP Family Medicine; Referring Provider Family Medicine; Visit Provider Family Medicine
DX: Z12.31 Encounter for screening mammogram for malignant neoplasm of breast (principal); Z80.3 Family history of malignant neoplasm of breast
CPT/HCPCS: 77063; 77067

== ENCOUNTER 2024-04-03 07:58 | Day surgery (SDC) | payer MEDICARE, OTHER, SELFPAY ==
[2024-04-03] VITALS (7 sets, daily range): BP systolic 111–159; BP diastolic 50–61; PULSE 55–62; RESP 16–20; TEMP 36.1–37.1; O2SAT 96–99; BMI 58.4
[2024-04-03] MEDS: Lactated Ringers 1,000 ML 15 ML IV (08:32)
--- NOTE | 2024-04-03 08:34 | PRE.ANES_ITS ---
ASA Classification* ASA Classification ASA Classification: 3 Assessment & Plan Anesthesia* Anesthesia Assessment Anesthesia Assessment: Discussed sedation and/or anesthesia options, risks, benefits, and alternatives with patient/parents/legal guardian/POA. Questions invited. The patient/parents/legal guardian/POA seems to understand and agrees to proceed with anesthesia plan. Reviewed the physical assessment, medical history, allergy history and patient home medications list prior to surgery/procedure/anesthetic and documented any changes. Performed airway and anesthesia risk assessments. 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 When Was Last Pacemaker Check QUESTION #4 FULL TEXT: You/Your Family Experience fever (hyperthermia) with Anesthesia Last Oral Intake Last Oral intake: Last Oral Intake NPO since Meds taken in AM with sips of water? Meds patient instructed to take am of surgery PONV PONV - border guard: PONV - border guard Female Yes 03/30/24 10:42 HX of Motion Sickness No 03/30/24 10:42 HX of N/V After Surgery No 03/30/24 10:42 Non-Smoker Yes 03/30/24 10:42 Duration of Surgery greater No 03/30/24 10:42 than 60 minutes Number of Risk Factors 2 03/30/24 10:42 PONV Score Moderate Risk 03/30/24 10:42 Height & Weight Height & Weight: Anesthesia: Height & Weight Height 5 ft 5 in 02/04/24 09:51 Respiratory Assessment Respiratory Assessment - border guard: Respiratory Tract Infection Hx - border guard Hx Respiratory Tract Infection No 03/30/24 10:42 STOP Sleep Apnea STOP Sleep Apnea - border guard: STOP Sleep Apnea - border guard Hx Hypertension Yes: CONTROLLED ON MED 03/30/24 10:42 Hx Sleep Apnea Yes: CPAP AT NIGHT 03/30/24 10:42 CPAP Yes 03/30/24 10:42 BIPAP No 03/30/24 10:42 Do you snore loudly (louder than talking or can be heard Do you often feel tired/ fatigued/ sleepy during daytime? Has anyone observed you stop breathing during sleep? STOP Results Positive 03/30/24 10:42 QUESTION #5 FULL TEXT : Do you snore loudly (louder than talking or can be heard through closed doors)? 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 Specify any problems Hx of Preganancy in last 3 No 03/30/24 10:42 Months Nurse Filling Out Transfusion VCHRISTIN 03/30/24 10:42 & Questions: Date: 03/30/24 03/30/24 10:42 Time: 10:43 03/30/24 10:42 Patient unable to answer at this time (ie. confused, unrespo /Reproduction History /Reproductive History - border guard: /Reproductive Hx- border guard Hx Now Gestational Age (in weeks): EDC: Hx Hx Para Hx Section SAB Active Medications Active Medications: Current Medications Generic Name Dose Route Start Last Admin Trade Name Freq PRN Reason Stop Dose Admin Lactated Ringer's 1,000 mls @ 15 mls/hr 04/03/24 08:15 04/03/24 08:32 IV 15 mls/hr .Q48H BRYAN Administration Anesthesia Focused Assessment* Airway Assessment Mouth opens: >3 cm Mallampati Score: II Focused Labs Anesthesia Preop lab: CBC WBC 6.5 K/mm3 (4.4-11.0) 07/25/23 11:26 RBC 4.80 M/mm3 (4.2-5.4) 07/25/23 11:26 Hgb 13.4 g/dL (12.0-15.0) 07/25/23 11:26 Hct 40.8 % (37-47) 07/25/23 11:26 Plt Count 283 K/mm3 (150-450) 07/25/23 11:26 CHEMISTRY Potassium 4.0 mmol/L (3.5-5.1) 07/25/23 11:26 Sodium 139 mmol/L (136-145) 07/25/23 11:26 Magnesium 2.0 mg/dL (1.6-2.6) 11/25/18 13:28 BUN 15 mg/dL (7-18) 07/25/23 11:26 Creatinine 1.10 mg/dL (0.55-1.02) H 07/25/23 11:26 Glucose 100 mg/dL (74-106) 07/25/23 11:26 TSH 3.49 uIU/mL (0.358-3.74) 07/25/23 11:26 COAG PT 13.6 SECONDS (11.7-14.9) 12/15/22 15:10 Review of Systems (Anesthesia) ROS Narrative System reviewed and no additional complaints, except as documented. [facility] Medical History Wears glasses Post-menopausal Thyroid disease Arthritis Kidney stones High cholesterol History of hiatal hernia Non-smoker CPAP (continuous positive airway pressure) dependence Sleep apnea Shortness of breath on exertion History of pain when walking History of edema History of echocardiogram History of stress test Cardiology follow-up encounter Chest pain Essential hypertension Chest discomfort Agatston CAC score, >400 Palpitations Edema Family history of ischemic heart disease History of pulmonary embolus (PE) (12/01/16) Hyperlipidemia Skin lesion History of colon polyps Pulmonary embolus (~2016) Asthmatic bronchitis Morbid obesity GERD (gastroesophageal reflux disease) Depression Hypothyroidism Sleep apnea Home Medications ?Medication ?Instructions ?Recorded ?Last Taken ?Type aspirin 81 mg chewable tablet 81 mg PO DAILY 12/01/16 03/30/24 History citalopram 20 mg tablet 20 mg PO DAILY 12/01/16 04/02/24 History bupropion HCl 150 mg 24 hr tablet, 150 mg PO DAILY 05/13/23 04/02/24 History extended release ergocalciferol (vitamin D2) 1,250 50,000 unit PO QWEEK 05/13/23 Unknown History mcg (50,000 unit) capsule levothyroxine 175 mcg tablet 175 mcg PO DAILY 05/13/23 04/02/24 History amlodipine 5 mg tablet 5 mg PO DAILY Dose reduced due to 06/11/23 04/02/24 Rx ankle swelling on 10 mg #90 tabs ezetimibe 10 mg tablet 10 mg PO DAILY #30 tabs 06/11/23 04/02/24 Rx losartan 100 1 tab PO DAILY HCTZ portion 06/11/23 04/03/24 Rx mg-hydrochlorothiazide 25 mg tablet increased #90 tabs spironolactone 25 mg tablet 25 mg PO DAILY #90 tabs 02/03/24 04/02/24 Rx Allergy/AdvReac Type Severity Reaction Status Date / Time erythromycin base Allergy Mild rash Verified 03/30/24 10:30 atorvastatin (From Lipitor) AdvReac Intermediate Myalgias Verified 03/30/24 10:30 and joint pain sertraline (From Zoloft) AdvReac Mild mental Verified 03/30/24 10:30 status change lisinopril AdvReac COUGH Verified 03/30/24 10:30 Family History Father Myocardial infarction CAD (coronary artery disease) Mother Cancer ovarian Hypertension Hyperlipidemia Grandfather Myocardial infarction Surgical History history of completion thyroidectomy History of partial thyroidectomy History of cholecystectomy History of hysterectomy History of colonoscopy (~2013) Social History household members: spouse Smoking Status: Never smoker alcohol intake: never substance use type: does not use caffeine: Yes
--- NOTE | 2024-04-03 08:37 | HP.PCM_ITS ---
HPI - General HPI Narrative YEIMY NAVAS, is a 68 F who presents for screening colonoscopy. Her last colonoscopy was 10 years ago and was normal. She denies blood in the stool. She occasionally has left lower quadrant pain but says it is not severe. She has no family history of colon cancer. [facility] Medical History Wears glasses Post-menopausal Thyroid disease Arthritis Kidney stones High cholesterol History of hiatal hernia Non-smoker CPAP (continuous positive airway pressure) dependence Sleep apnea Shortness of breath on exertion History of pain when walking History of edema History of echocardiogram History of stress test Cardiology follow-up encounter Chest pain Essential hypertension Chest discomfort Agatston CAC score, >400 Palpitations Edema Family history of ischemic heart disease History of pulmonary embolus (PE) (12/01/16) Hyperlipidemia Skin lesion History of colon polyps Pulmonary embolus (~2016) Asthmatic bronchitis Morbid obesity GERD (gastroesophageal reflux disease) Depression Hypothyroidism Sleep apnea Home Medications ?Medication ?Instructions ?Recorded ?Last Taken ?Type aspirin 81 mg chewable tablet 81 mg PO DAILY 12/01/16 03/30/24 History citalopram 20 mg tablet 20 mg PO DAILY 12/01/16 04/02/24 History bupropion HCl 150 mg 24 hr tablet, 150 mg PO DAILY 05/13/23 04/02/24 History extended release ergocalciferol (vitamin D2) 1,250 50,000 unit PO QWEEK 05/13/23 Unknown History mcg (50,000 unit) capsule levothyroxine 175 mcg tablet 175 mcg PO DAILY 05/13/23 04/02/24 History amlodipine 5 mg tablet 5 mg PO DAILY Dose reduced due to 06/11/23 04/02/24 Rx ankle swelling on 10 mg #90 tabs ezetimibe 10 mg tablet 10 mg PO DAILY #30 tabs 06/11/23 04/02/24 Rx losartan 100 1 tab PO DAILY HCTZ portion 06/11/23 04/03/24 Rx mg-hydrochlorothiazide 25 mg tablet increased #90 tabs spironolactone 25 mg tablet 25 mg PO DAILY #90 tabs 02/03/24 04/02/24 Rx Allergy/AdvReac Type Severity Reaction Status Date / Time erythromycin base Allergy Mild rash Verified 03/30/24 10:30 atorvastatin (From Lipitor) AdvReac Intermediate Myalgias Verified 03/30/24 10:30 and joint pain sertraline (From Zoloft) AdvReac Mild mental Verified 03/30/24 10:30 status change lisinopril AdvReac COUGH Verified 03/30/24 10:30 Family History Father Myocardial infarction CAD (coronary artery disease) Mother Cancer ovarian Hypertension Hyperlipidemia Grandfather Myocardial infarction Surgical History history of completion thyroidectomy History of partial thyroidectomy History of cholecystectomy History of hysterectomy History of colonoscopy (~2013) Social History household members: spouse Smoking Status: Never smoker alcohol intake: never substance use type: does not use caffeine: Yes Past Medical/Surgical History Planned Operation Planned Operative Procedure(s): COLONOSCOP-OA Previous Hospitalizations/Surgeries HX Hospitalizations: No Any Problems With Anesthesia: No You/Your Family Experience Fever (Hyperthermia) With Anes: No Cholinesterase deficiency: No Cardiovascular Hx of Irregular Heartbeat and/or Afib: No Hx Heart Attack: No Hx Congestive Heart Failure: No Hx Rheumatic Fever: No Hx Hypertension: Yes (CONTROLLED ON MED) Hx Internal Defibrillator: No Hx Pacemaker: No Hx Cardiac Catheterization: No Respiratory HX of Shortness of Breath: Yes Hx Chronic Obstructive Pulmonary Disease (COPD): No Hx Asthma: No Hx Emphysema: No Hx Sleep Apnea: Yes (CPAP AT NIGHT) CPAP: Yes BIPAP: No Hx Respiratory Tract Infection/Cold (presently): No Result (for STOP score): Positive Smoking Status: Never smoker Gastrointestinal Hx Ulcer: Yes Special diet followed at home: No Neurological Hx Seizures: No Hx Transient Ischemic Attacks (TIA): No Hx Multiple Sclerosis: No Hx Parkinson's Disease: No Hx Head/Neck Injury: No Hx Headaches: No Hx Back Injury/Pain: No Does patient have nerve stimulator: No Blood Disorder Hx High Cholesterol: No Hx Hepatitis: No Hx Cirrhosis: No Hx Anemia: No Reproduction Is Patient Lactating: No Musculoskeletal Hx Arthritis: No Hx Gout: No Endocrine Hx Diabetes: No Thyroid Disease: Yes Psycho/Social Hx Substance Use: No Hx Alcohol Use: No Hx Anxiety: Yes Hx Depression: Yes Hx Dementia: No Miscellaneous Hx Cancer: No Recent Exposure to Contagious Disease: No Allergies erythromycin base Allergy (Mild, Verified 03/30/24 10:30) rash atorvastatin (From Lipitor) Adverse Reaction (Intermediate, Verified 03/30/24 10:30) Myalgias and joint pain sertraline (From Zoloft) Adverse Reaction (Mild, Verified 03/30/24 10:30) mental status change lisinopril Adverse Reaction (Verified 03/30/24 10:30) COUGH Discharge Is Pt Admitted From a Usp, or a Snf: No After D/C, Where Do you Plan to Go: Return Home From the [facility] History Number of Risk Factors: 4 Vital Signs Vital Signs Vital Signs: 04/03/24 08:33 04/03/24 08:36 Temperature 97.0 F L Temperature Source Temporal Pulse Rate 62 Respiratory Rate 20 H Respiratory Pattern Normal Blood Pressure 159/61 H Blood Pressure Mean 93 Blood Pressure Source Monitor Blood Pressure Position Semi-Fowlers Blood Pressure Location Right Forearm Pulse Ox 99 Oxygen Delivery Method Room Air Weight Weight: 351 lb 3.142 oz Body Mass Index (BMI) 58.4 Physical Exam Const alert and oriented x3 HEENT normocephalic Eyes PERRL Resp normal respiratory effort and normal air movement Cardio regular rate and regular rhythm GI soft to palpation, non-tender and non-distended Extremity normal to inspection Assessment & Plan Assessment/Plan (1) Encounter for screening for malignant neoplasm of colon: PLAN: I explained endoscopy in detail to the patient. I explained the risks including but not limited to stroke or heart attack with anesthesia, perforation of the GI tract, bleeding, infection. I explained that any of these could necessitate further emergency surgery. The patient understands and all questions were answered sufficiently. The patient wishes to proceed with procedure. . Kevin Olmedo MD Pager: [facility] [address] [place] [address], [address] [place] [address] Office: Surgery Risks - Colonoscopy Risks Include but are not Limited To: Risks include but are not limited to: Bleeding, perforation requiring further surgery, inability to complete colonoscopy requiring barium enema.
--- NOTE | 2024-04-03 09:09 | OP.CCLET_ITS ---
04/03/2024 Ana Medina [facility] [address] [place] [address] Re : Colonoscopy procedure for Fany Carmen Dear Dr. Medina This procedure was performed on Wednesday, April 03, 2024. My impressions and recommendations are as follows: Impressions : - The entire examined colon is normal on direct and retroflexion views. - No specimens collected. Recommendations : - Discharge patient to home. - Resume previous diet. - Continue present medications. - Repeat colonoscopy in 10 years for screening purposes. My findings are described in the full procedure note, which is enclosed. If I can be of further assistance, please feel free to contact me at Doctor phone number(s): , Work: . Sincerely, Kevin Olmedo MD 04/03/2024 9:08:56 AM This report has been signed electronically.
--- NOTE | 2024-04-03 09:09 | OP.COLON_ITS ---
Patient Name: Fany Carmen Procedure Date: 04/03/2024 8:36 AM Date of : 1955 Age: 68 Procedure: Colonoscopy Indications: Screening for colorectal malignant neoplasm Providers: Kevin Olmedo MD Referring MD: Ana Medina Medicines: Propofol per Anesthesia Patient Profile: This is a 68 year old female. Refer to note in patient chart for documentation of history and physical. Last Colonoscopy: 10 years ago. Complications: No immediate complications. Procedure: Pre-Anesthesia Assessment: - Prior to the procedure, a History and Physical was performed, and patient medications and allergies were reviewed. The patient's tolerance of previous anesthesia was also reviewed. The risks and benefits of the procedure and the sedation options and risks were discussed with the patient. All questions were answered, and informed consent was obtained. Prior Anticoagulants: The patient has taken no anticoagulant or antiplatelet agents. After reviewing the risks and benefits, the patient was deemed in satisfactory condition to undergo the procedure. After I obtained informed consent, the scope was passed under direct vision. Throughout the procedure, the patient's blood pressure, pulse, and oxygen saturations were monitored continuously. The pediatric colonoscope was introduced through the anus and advanced to the cecum, identified by appendiceal orifice and ileocecal valve. The colonoscopy was performed without difficulty. The patient tolerated the procedure well. The quality of the bowel preparation was good. The ileocecal valve, appendiceal orifice, and rectum were photographed. Scope In: 8:50:16 AM Scope Withdrawal Time 0 hours 6 minutes 42 seconds Scope Out: 9:05:39 AM Total Procedure Duration Time 0 hours 15 minutes 23 seconds Findings: The entire examined colon appeared normal on direct and retroflexion views. Impression: - The entire examined colon is normal on direct and retroflexion views. - No specimens collected. Recommendation: - Discharge patient to home. - Resume previous diet. - Continue present medications. - Repeat colonoscopy in 10 years for screening purposes. Procedure Code(s): --- Professional --- 48064, Colonoscopy, flexible; diagnostic, including collection of specimen(s) by brushing or washing, when performed (separate procedure) Diagnosis Code(s): --- Professional --- Z12.11, Encounter for screening for malignant neoplasm of colon CPT copyright 2021 [employer]. All rights reserved. The codes documented in this report are preliminary and upon rn wound review may be revised to meet current compliance requirements. Kevin Olmedo MD 04/03/2024 9:08:56 AM This report has been signed electronically. Number of Addenda: 0 Note Initiated On: 04/03/2024 8:36 AM
--- NOTE | 2024-04-03 09:11 | PCM.POST.ANE ---
Anesthesia: Postop Eval I Current Vital Signs Temperature: 97.6 F Pulse Rate: 57 Blood Pressure: 111/58 Respiratory Rate: 16 Pulse Ox: 97 Oxygen Delivery Method: Room Air Assessment Airway patent: Yes Spontaneous unlabored respirations: Yes Mental status: Awake and Calm nausea: No Vomiting: No Anesthesia Complication: No Fluid Hydration Crystalloid volume administer (ml): 500 Total IV fluid infused: 500 Progress Note Anesthesia document: Postop Eval 1 completed: Yes
--- NOTE | 2024-04-03 09:28 | PCM.POSTANE2 ---
Anesthesia Postop Eval I Sum Postop Eval Completion status Anesthesia document: Postop Eval 1 completed: Yes Anesthesia Postop Eval I Summary Anesthesia Postop Eval I Summary: Anesthesia Postop Eval I: Assessment Summary Airway patent Yes 04/03/24 09:16 [email or web address] Spontaneous unlabored Yes 04/03/24 09:16 [email or web address] respirations Mental status Awake,Calm 04/03/24 09:16 [email or web address] nausea No 04/03/24 09:16 [email or web address] Vomiting No 04/03/24 09:16 [email or web address] Anesthesia Postop Eval I: Fluid Summary Crystalloid volume administer 500 04/03/24 09:16 [email or web address] (ml) Colloids volume administered ( ml) Blood Product volume administered (ml) Total IV fluid infused 500 04/03/24 09:16 [email or web address] Anesthesia Postop Eval I: Summary Notes Anesthesia Complication No 04/03/24 09:16 [email or web address] Anesthesia Complication Comment: Post-operative progress note Anesthesia: Postop Eval II Evaluation Mental status: Awake Pain Level: 0 nausea: No Vomiting: No Complications Anesthesia Complication: No
== END 2024-04-03 09:57 | disposition home or self-care (01) ==
LOC: EN 08:00 → AC 08:03
PROVIDERS: PCP Family Medicine; Referring Provider Family Medicine; Visit Provider Surgery
PROC: 0DJD8ZZ Inspection of Lower Intestinal Tract, Via Natural or Artificial Opening Endoscopic (ICD-10-PCS; CPT 45378; principal; 2024-04-03 08:55)
DX: Z12.11 Encounter for screening for malignant neoplasm of colon (principal); I10 Essential (primary) hypertension; E78.00 Pure hypercholesterolemia, unspecified; E03.9 Hypothyroidism, unspecified; Z79.82 Long term (current) use of aspirin; Z79.890 Hormone replacement therapy; Z79.899 Other long term (current) drug therapy; Z78.0 Asymptomatic menopausal state
CPT/HCPCS: G0121; J7120; J2405

== ENCOUNTER 2024-08-15 01:34 | Emergency (ER) | payer MEDICARE, OTHER, SELFPAY ==
[2024-08-15 01:35] VITALS: BP 200/73; PULSE 81; RESP 18; TEMP 36.9; O2SAT 94; BMI 58.4
--- NOTE | 2024-08-15 01:54 | EKG12_ITS ---
Test Reason : HTN Blood Pressure : / mmHG Vent. Rate : 059 BPM Atrial Rate : 059 BPM P-R Int : 164 ms QRS Dur : 106 ms QT Int : 474 ms P-R-T Axes : 045 -26 044 degrees QTc Int : 469 ms Sinus bradycardia Otherwise normal ECG Confirmed by PIOTR LEMONS, LEIGH ([id number]), video tape editor GIULIANO PARKER ([id number]) on 08/17/2024 9:29:47 AM Referred By: Confirmed By:LEIGH SALDAÑA MD
--- NOTE | 2024-08-15 01:54 | CT_ITS ---
INDICATION: headache EXAMINATION: CT BRAIN - CT Head or Brain W/O Contrast Injection TECHNIQUE: Multiple axial images were obtained of the head without intravenous contrast. The protocol utilizes one or more of the following dose reduction techniques: automated exposure control, adjustment of mA and/or kV according to patient size,and/or use of iterative reconstruction technique. IV Contrast dosage and agent: None. RADIATION DOSAGE (If Supplied By Facility): CTDIvol = ( 44.99 ) mGy, DLP = ( 812.98 ) mGycm COMPARISON: No relevant prior comparison study available FINDINGS: BRAIN PARENCHYMA: No intra- or extra-axial hemorrhage. No evidence of acute infarct. No intracranial mass or mass effect. There is preservation of the sainz/white matter interface. Posterior fossa structures are unremarkable. CSF SPACES: Appropriate for age. No hydrocephalus. Basal cisterns are patent. CALVARIUM, SKULL BASE, PARANASAL SINUSES AND MASTOID AIR CELLS: Clear. No discrete lytic or blastic abnormalities. ORBITS: Both globes, extraocular muscles, optic nerves and retrobulbar fat appear unremarkable. ASPECTS Score for Acute Strokes: 10 CT/Brain/Head without Contrast IMPRESSION: Negative Brain CT without contrast. Electronically Signed: Gabi Forde MD at 3:13 EDT ,
[2024-08-15] MEDS: hydrALAZINE 20 MG/ML Vial 10 MG IV (02:04)
[2024-08-15] MEDS: cloNIDine HCl 0.1 MG Tablet PO (02:04)
[2024-08-15 02:06] LABS: Absolute Lymphocyte Count 2.17 X10^3/uL (0.83-4.51); Absolute Neutrophil Count 4.3 X10^3/uL (2.0-7.7); Basophil# 0.07 X10^3/uL; Eosinophil# 0.16 X10^3/uL; Eosinophils% 2.2 % (0-5); Hematocrit 34.8 % (37-47); Hemoglobin 11.7 g/dL (12.0-15.0); Lymphocyte # 2.17 X10^3/ul (0.83-4.51); Lymphocyte % 29.9 % (19-41); Mean Corp Hgb Conc 33.6 g/dL (32-36); Mean Corpuscular Hgb 28.5 pg (27.0-32.0); Mean Corpuscular Volume 84.7 fL (81-99); Monocyte% 6.9 % (0-10); NRBC Flagged by Analyzer 0 % (0-5); Neutrophil # 4.33 X10^3/uL (2.7-7.7); Neutrophil % 59.6 % (47-70); Platelet Count 235 K/mm3 (150-450); RBC Distribution Width SD 39.8 fl (35.1-43.9); Red Blood Count 4.11 M/mm3 (4.2-5.4); White Blood Count 7.3 K/mm3 (4.4-11.0)
--- NOTE | 2024-08-15 02:17 | EX.ED.DYSGE1 ---
HPI History of Present Illness Chief Complaint: Hypertension Informant: patient and spouse/S.O. Narrative Narrative: Patient is a 68-year-old female with past medical history of hypertension hyperlipidemia and hypothyroidism. She states she has been taking her medications as directed. She denies any excessive stimulant use or illicit drug use. She states there has been no recent cessation of medication either to suggest withdrawal symptoms. She reports that typically her blood pressure is good but that a few days ago at her doctor's office visit her blood pressure was elevated approximately 170. She states this evening she developed a mild left-sided headache and she does not typically get headaches . She states she checked her blood pressure and it was elevated at approximately 200 and therefore with the symptoms comes in for evaluation [facility] Medical History Wears glasses Post-menopausal Thyroid disease Arthritis Kidney stones High cholesterol History of hiatal hernia Non-smoker CPAP (continuous positive airway pressure) dependence Sleep apnea Shortness of breath on exertion History of pain when walking History of edema History of echocardiogram History of stress test Cardiology follow-up encounter Chest pain Essential hypertension Chest discomfort Agatston CAC score, >400 Palpitations Edema Family history of ischemic heart disease History of pulmonary embolus (PE) (12/01/16) Hyperlipidemia Skin lesion History of colon polyps Pulmonary embolus (~2016) Asthmatic bronchitis Morbid obesity GERD (gastroesophageal reflux disease) Depression Hypothyroidism Sleep apnea Home Medications ?Medication ?Instructions ?Recorded ?Last Taken ?Type aspirin 81 mg chewable tablet 81 mg PO DAILY 12/01/16 03/30/24 History citalopram 20 mg tablet 20 mg PO DAILY 12/01/16 04/02/24 History bupropion HCl 150 mg 24 hr tablet, 150 mg PO DAILY 05/13/23 04/02/24 History extended release ergocalciferol (vitamin D2) 1,250 50,000 unit PO QWEEK 05/13/23 Unknown History mcg (50,000 unit) capsule levothyroxine 175 mcg tablet 175 mcg PO DAILY 05/13/23 04/02/24 History spironolactone 25 mg tablet 25 mg PO DAILY #90 tabs 02/03/24 04/02/24 Rx losartan 100 1 tab PO DAILY HCTZ portion 05/05/24 Unknown Rx mg-hydrochlorothiazide 25 mg tablet increased #90 tabs ezetimibe 10 mg tablet 10 mg PO DAILY #90 tabs 06/18/24 Unknown Rx amlodipine 5 mg tablet 5 mg PO DAILY Dose reduced due to 08/07/24 Unknown Rx ankle swelling on 10 mg #90 tabs Allergy/AdvReac Type Severity Reaction Status Date / Time erythromycin base Allergy Mild rash Verified 08/15/24 01:35 atorvastatin (From Lipitor) AdvReac Intermediate Myalgias Verified 08/15/24 01:35 and joint pain sertraline (From Zoloft) AdvReac Mild mental Verified 08/15/24 01:35 status change lisinopril AdvReac COUGH Verified 08/15/24 01:35 Family History (Reviewed 07/16/24 @ 14:34 by Celina Wilkins [employer], [employer]) Father Myocardial infarction CAD (coronary artery disease) Mother Cancer ovarian Hypertension Hyperlipidemia Grandfather Myocardial infarction Surgical History history of completion thyroidectomy History of partial thyroidectomy History of cholecystectomy History of hysterectomy History of colonoscopy (~2013) Social History household members: spouse Smoking Status: Never smoker alcohol intake: never substance use type: does not use caffeine: Yes ROS ROS ED Constitutional Constitutional ED: Denies chills or fever(s) Eyes Eyes: Denies blurry vision or change in vision ENT ENT ED: Denies sore throat Cardiovascular Cardiovascular: Denies chest pain or palpitations Respiratory/Chest Respiratory/Chest: Denies cough or dyspnea Gastrointestinal Gastrointestinal: Denies abdominal pain, diarrhea, nausea or vomiting Genitourinary Genitourinary ED: Denies dysuria Musculoskeletal Musculoskeletal: Denies myalgias or neck pain Integumentary Denies rash Neurologic Neurologic: Reports headache(s); Denies paresthesias or weakness Hematologic/Lymphatic Hematologic/Lymphatic: Denies easy bleeding or easy bruising EXAM Physical Exam Const Vital Signs: 08/15/24 01:35 08/15/24 01:39 Temperature 98.5 F Temperature Source Oral Pulse Rate 81 Respiratory Rate 18 Respiratory Effort Normal Non-Labored Respiratory Pattern Normal Blood Pressure 200/73 H Blood Pressure Mean 115 Pulse Ox 94 Oxygen Delivery Method Room Air Positive well nourished, well developed and obese General Appearance ED: well developed; Negative for pallor Nutritional Appearance: obese HEENT HEENT Narrative: Normocephalic atraumatic Eyes PERRL and EOMs intact bilaterally General Eye ED: Negative for scleral icterus Neck supple Neck Narrative: No nuchal rigidity or meningeal signs Chest Wall palpation of chest normal Resp normal respiratory effort and clear to auscultation bilaterally Cardio regular rate and regular rhythm Rate: other Other Details: Heart is regular rate and rhythm without murmurs rubs or gallop Radial and carotid pulses are equal and symmetric No carotid bruit noted GI normal to inspection, nondistended, normoactive bowel sounds, non-tender, non-distended and no masses GI Narrative: No pulsatile mass Auscultation: normoactive bowel sounds Palpation: soft Extremity normal to inspection Neuro oriented x3, CN's II-XII intact bilaterally and no sensory deficits noted Neuro Narrative: GCS of 15 Cranial nerves II through XII are grossly intact there are no focal neurologic deficits No pronator drift no dysmetria no truncal ataxia NIH stroke scale score of 0 Sensorium / Orientation: alert Motor Exam: strength 5/5 throughout Psych mental status grossly normal Skin no rashes or lesions noted General Skin Exam: Negative for jaundice or pallor MDM MDM MDM Narrative Medical decision making narrative: Patient arrived to the ER hypertensive but otherwise with stable vitals and a nonfocal neurologic exam. In order to rule out endorgan damage such as an acute brain bleed such as a subarachnoid or subdural hemorrhage as well as acute coronary syndrome or acute kidney injury a head CT and basic labs were obtained. EKG showed sinus rhythm without ischemic changes and the troponin was 7 going against ACS. Creatinine was normal at 1.19 going against acute kidney injury and head CT revealed no acute findings. After receiving IV hydralazine and oral clonidine the patient's blood pressure improved 25% which is the goal reduction in the ER. On reevaluation she is resting comfortably and her neurologic exam remains normal and therefore with resolution of her hypertension and no signs of endorgan damage she is otherwise safe for discharge History & Record Review Discussion w/independent historian: Patient and Significant other Lab Data Attestation: I reviewed the patient's lab results. Labs: Laboratory Results - last 24 hr 08/15/24 01:58 WBC 7.3 RBC 4.11 L Hgb 11.7 L Hct 34.8 L MCV 84.7 MCH 28.5 MCHC 33.6 RDW Std Deviation 39.8 RDW Coeff of Katie 13.0 Plt Count 235 MPV 9.0 Immature Gran % (Auto) 0.400 Neut % (Auto) 59.6 Lymph % (Auto) 29.9 Bates % (Auto) 6.9 Eos % (Auto) 2.2 Baso % (Auto) 1.0 Absolute Neuts (auto) 4.3 Absolute Lymphs (auto) 2.17 Nucleated RBC % 0 Sodium 140 Potassium 3.3 L Chloride 105 Carbon Dioxide 28.0 Anion Gap 6 BUN 20 H Creatinine 1.19 H Estim Creat Clear Calc 68.50 Est GFR (MDRD) Af Amer 58 L Est GFR (MDRD) Non-Af 48 L BUN/Creatinine Ratio 16.8 Glucose 132 H Calcium 8.7 Troponin I High Sens 7 Radiography Diagnostic Testing: Clinical Impression(s) from Imaging Studies Brain CT 08/15/24 01:54 IMPRESSION: Negative Brain CT without contrast. Electronically Signed: Gabi Forde MD at 3:13 EDT Reading Location ID and State: [facility] / [place] Tel , Service support , Discharge Plan Triage Chief Complaint: Hypertension ED Provider: Bruce Simpson Dx/Rx/DC Orders Clinical Impression: Accelerated hypertension, Hypothyroidism, Hyperlipidemia Instructions: Hypertension Dc Prescriptions: No Action bupropion HCl 150 mg tablet extended release 24 hr 150 mg PO DAILY Patient Comments: TAKE 1 TABLET BY MOUTH ONCE DAILY ergocalciferol (vitamin D2) 1,250 mcg (50,000 unit) capsule 50,000 unit PO QWEEK Patient Comments: TAKE 1 CAPSULE BY MOUTH ONCE A WEEK citalopram 20 MG tablet 20 mg PO DAILY aspirin 81 MG tablet,chewable 81 mg PO DAILY levothyroxine 175 mcg tablet 175 mcg PO DAILY Rx Instructions: Take 1 tablet 6 days per week and 1/2 tablet 1 day per week. spironolactone 25 mg tablet 25 mg PO DAILY Qty: 90 3RF losartan-hydrochlorothiazide 100-25 mg tablet 1 tab PO DAILY Qty: 90 3RF ezetimibe 10 mg tablet 10 mg PO DAILY Qty: 90 3RF amlodipine 5 mg tablet 5 mg PO DAILY Qty: 90 3RF Primary Care Provider: Ana Medina Referrals: Ana Medina MD [Primary Care Provider] - Activity Restrictions/Additional Instructions: Please follow-up with your family doctor to discuss adjustment to your home blood pressure medication based on your elevated reading this evening. Continue all of your medications as directed by your doctor and return to the ER should you have any further concerns Print Language: Anguill[place] Disposition Disposition: Home, Self Care
[2024-08-15 02:24] LABS: Anion Gap 6 (5-15); BUN 20 mg/dL (7-18); BUN/Creat Ratio 16.8 RATIO (10-20); Calcium,Total 8.7 mg/dL (8.5-10.1); Chloride 105 mmol/L (98-107); Creatinine, Serum 1.19 mg/dL (0.55-1.02); EST Glomerular Filtration Rate 48 mL/min (>60); Est Glom Filt Rate - Afr Amer 58 mL/min (>60); Glucose 132 mg/dL (74-106); Potassium 3.3 mmol/L (3.5-5.1); Sodium Level 140 mmol/L (136-145); Troponin-I HS 7 pg/mL (3.0-54.0)
[2024-08-15 03:17] VITALS: BP 150/57; PULSE 56; RESP 15; TEMP 36.9; O2SAT 99
== END 2024-08-15 03:22 | disposition home or self-care (01) ==
PROVIDERS: Emergency Provider Emergency Medicine; PCP Family Medicine; Visit Provider Emergency Medicine
DX: I10 Essential (primary) hypertension (principal); E89.0 Postprocedural hypothyroidism; E78.00 Pure hypercholesterolemia, unspecified; Z79.82 Long term (current) use of aspirin; Z79.890 Hormone replacement therapy; Z79.899 Other long term (current) drug therapy
CPT/HCPCS: 70450; 80048; 84484; 85025; 93005; 96374; 99283; A4216

== ENCOUNTER → 2024-12-14 | Outpatient (CLI) | payer MEDICARE, OTHER, SELFPAY ==
--- NOTE | 2024-12-14 11:10 | BI_ITS ---
PROCEDURE: SCRN MAMM (CAD)W/MADELYN BILAT REASON FOR EXAM: F, Age 69 y/o, daughter with breast cancer. Remote left excisional breast biopsy. TECHNIQUE: Bilateral screening digital breast tomosynthesis with 2D and 3D images. Computer aided detection. COMPARISON: Prior exam(s) dating back to November 06, 2023.. FINDINGS: There are scattered areas of fibroglandular density. Stable small fat containing axillary lymph nodes. No suspicious masses, areas of developing architectural distortion, or suspicious calcifications. BI/SCRN MAMM (CAD)W/MADELYN BILAT IMPRESSION: BI-RADS 2: BENIGN. RECOMMEND ANNUAL MAMMOGRAPHIC SCREENING. Follow-up code: Routine Follow-up The patient will be notified of the results by letter. Reading Location: [id number]
== END | disposition home or self-care (01) ==
PROVIDERS: PCP Family Medicine; Referring Provider Family Medicine; Visit Provider Family Medicine
DX: Z12.31 Encounter for screening mammogram for malignant neoplasm of breast (principal)
CPT/HCPCS: 77063; 77067

== ENCOUNTER → 2025-03-17 | Outpatient (CLI) | payer MEDICARE, OTHER, SELFPAY | END | disposition home or self-care (01) | LOC: MTLAB 15:03 | PROVIDERS: PCP Family Medicine; Referring Provider Family Medicine; Visit Provider Family Medicine | DX: E03.9 Hypothyroidism, unspecified (principal) | CPT/HCPCS: 36415; 84443 ==

== ENCOUNTER → 2025-05-26 | Outpatient (CLI) | payer MEDICARE, OTHER, SELFPAY | END | disposition home or self-care (01) | PROVIDERS: PCP Family Medicine; Visit Provider Family Medicine | DX: E03.9 Hypothyroidism, unspecified (principal) | CPT/HCPCS: 36415; 84443 ==

== ENCOUNTER → 2025-06-25 | Outpatient (CLI) | payer MEDICARE, OTHER, SELFPAY ==
--- NOTE | 2025-06-25 09:42 | ECHOD_ITS ---
Reason For Study Reason For Study: MURMUR Procedure This was a 2D Doppler, Color Flow transthoracic echocardiogram. Exam performed in department. Left Ventricle Normal LV size. The estimated ejection fraction is 60 %. Stage 2 diastolic dysfunction. No regional wall motion abnormalities noted. Right Ventricle Normal RV size. Normal systolic function. Atria The left atrium is mildly enlarged. Normal right atrium. No doppler evidence for ASD. Mitral Valve There is mild mitral annular calcification. There is no mitral valve stenosis. No mitral valve insufficiency. Tricuspid Valve There is no tricuspid stenosis. Trivial tricuspid valve insufficiency. Pulmonary artery systolic pressure is 30-35 mmHg. Aortic Valve Aortic sclerosis, no stenosis. Trisinus/trileaflet aortic valve. There is no aortic stenosis. Trivial aortic valve insufficiency. Pulmonic Valve There is no pulmonic valvular stenosis. No pulmonic valve insufficiency. MMode/2D Measurements & Calculations LVIDd: 5.7 cm IVSd: 1.3 cm Ao root diam: 3.4 cm LVIDs: 3.7 cm LVPWd: 1.3 cm RVDd: 3.3 cm FS: 34.9 % LAV(MOD-bp): 85.1 ml SV(MOD-sp4): 71.9 ml LVAd ap4: 33.6 cm2 LAV(MOD-bp) Indexed: 37.2 ml/m2 LVLd ap4: 8.6 cm SI(MOD-sp4): 31.4 ml/m2 LAV(MOD-sp2): 79.6 ml EDV(MOD-sp4): 114.4 ml LAV(MOD-sp4): 89.7 ml EDV(sp4-el): 111.1 ml LVAs ap4: 17.5 cm2 LVLs ap4: 6.9 cm ESV(MOD-sp4): 42.5 ml ESV(sp4-el): 37.6 ml EF(MOD-sp4): 62.8 % EF(sp4-el): 66.1 % SV(sp4-el): 73.5 ml LA dimension(2D): 4.8 cm LA A4 area: 25.8 cm2 RA A4 area: 20.2 cm2 Time Measurements MV dec time: 0.17 sec Doppler Measurements & Calculations MV E max darin: 105.0 cm/sec Lat Peak E' Darin: 8.3 cm/sec Med Peak E' Darin: 5.3 cm/sec MV A max darin: 97.8 cm/sec E/E' lat: 12.6 E/E' med: 19.8 MV E/A: 1.1 MV V2 max: 102.3 cm/sec Ao V2 max: 175.4 cm/sec MV max P.2 mmHg MV dec slope: 622.0 cm/sec2 Ao max P.3 mmHg MV V2 mean: 59.7 cm/sec Ao V2 mean: 122.7 cm/sec MV mean P.7 mmHg Ao mean P.9 mmHg MV V2 VTI: 43.0 cm Ao V2 VTI: 46.7 cm AV (velocity ratio): 0.83 AI max darin: 456.3 cm/sec LV V1 max: 136.4 cm/sec PA V2 max: 105.9 cm/sec AI max P.3 mmHg LV V1 max P.4 mmHg PA V2 mean: 81.1 cm/sec AI dec slope: 217.7 cm/sec2 LV V1 mean P.5 mmHg AI P1/2t: 614.0 msec LV V1 mean: 100.8 cm/sec LV V1 VTI: 38.7 cm TR max darin: 263.6 cm/sec TR max P.8 mmHg ECHO/Echo Complete Interpretation Summary The estimated ejection fraction is 60 %. Stage 2 diastolic dysfunction. The left atrium is mildly enlarged. Trivial aortic valve insufficiency. Ordering Physician: Malena Jacob Referring Physician: Malena Jacob Performed By: Widder, Regina, RCS
== END | disposition home or self-care (01) ==
LOC: CVS 09:41
PROVIDERS: PCP Family Medicine; Referring Provider Physician Assistant Medical; Visit Provider Physician Assistant Medical
DX: R01.1 Cardiac murmur, unspecified (principal)
CPT/HCPCS: 93306

== ENCOUNTER → 2025-09-29 | Outpatient (CLI) | payer MEDICARE, OTHER, SELFPAY ==
--- NOTE | 2025-09-29 16:43 | RAD_ITS ---
PROCEDURE: CERV SPINE 4 OR 5 VIEWS 09/29/2025 REASON FOR EXAM: CERVICALGIA TECHNIQUE: [facility] Procedure: CERV SPINE 4 OR 5 VIEWS COMPARISON: None available FINDINGS: Vertebrae: No acute vertebral body fractures. No suspicious osseous lesions. disc spaces: Mild degenerative changes characterized by loss of disc height and endplate sclerosis. Alignment: Intact with no traumatic subluxation. soft tissues: Grossly unremarkable as imaged. RAD/Cerv Spine 4 or 5 Views IMPRESSION: MILD CERVICAL DEGENERATIVE CHANGES. Reading [facility]
--- NOTE | 2025-09-29 16:44 | RAD_ITS ---
EXAM: XR Left Shoulder Complete, 2 or More Views CLINICAL INDICATION: PAIN, CERVICALGIA TECHNIQUE: Two or more views of the left shoulder. COMPARISON: No relevant prior studies available. FINDINGS: BONES/JOINTS: Moderate degenerative changes of the acromioclavicular joint. No acute fracture. No dislocation. SOFT TISSUES: Unremarkable. RAD/Shoulder min 2 Views IMPRESSION: Degenerative changes as above. Reading Location[facility]
== END | disposition home or self-care (01) ==
LOC: MTRAD 16:42
PROVIDERS: PCP Family Medicine; Referring Provider Nurse Practitioner Family; Visit Provider Nurse Practitioner Family
DX: R29.898 Other symptoms and signs involving the musculoskeletal system (principal); M54.2 Cervicalgia
CPT/HCPCS: 72050; 73030